=== PATIENT | male | born 1955 | race Caucasian/White ===

== ENCOUNTER 2016-10-23 03:05 | Emergency (ER) | payer OTHER ==
[~2016-10-23] VITALS: Ht 185.4 cm; Wt 70.0 kg
[~2016-10-23 03:05] MED LIST: CIPR500T4 PO; REME30TA PO; RISP3TAB23 PO
[2016-10-23 03:23] VITALS: BP 92/58; PULSE 82; RESP 18; TEMP 98.1; O2SAT 95
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
[2016-10-23 03:54] LABS: BASOPHIL # 0.1 TH/MM3 (0-0.2); BASOPHIL % 1.2 % (0.0-2.0); EOSINOPHIL # 0.1 TH/MM3 (0-0.4); EOSINOPHIL % 1.5 % (0.0-4.0); HEMATOCRIT 38.1 % (39.0-51.0); HEMO FLAGS DIFF FINAL; LYMPH % 37.5 % (9.0-44.0); LYMPHOCYTE # 2.3 TH/MM3 (1.0-4.8); MEAN CELL VOLUME 102.3 FL (80.0-100.0); MEAN CORPUSCULAR HEMOGLOBIN 35.4 PG (27.0-34.0); MEAN CORPUSCULAR HGB CONC 34.6 % (32.0-36.0); MONO % 11.5 % (0.0-8.0); NEUT % 48.3 % (16.0-70.0); PLATELET COUNT 115 TH/MM3 (150-450); RED BLOOD COUNT 3.73 MIL/MM3 (4.50-5.90); RED CELL DISTRIBUTION WIDTH 15.3 % (11.6-17.2); WHITE BLOOD COUNT 6.1 TH/MM3 (4.0-11.0)
[2016-10-23 04:05] LABS: ALT (GPT) 111 U/L (12-78); ANION GAP 10 MEQ/L (5-15); AST (GOT) 100 U/L (15-37); BICARBONATE 25.9 MEQ/L (21.0-32.0); BLOOD UREA NITROGEN 10 MG/DL (7-18); CHLORIDE 105 MEQ/L (98-107); GLOMERULAR FILTRATION RATE 93 ML/MIN (>89); POTASSIUM 3.7 MEQ/L (3.5-5.1); SODIUM (NA) 141 MEQ/L (136-145)
[2016-10-23 04:10] LABS: ALKALINE PHOSPHATASE 98 U/L (45-117); TOTAL BILIRUBIN ADULT 0.5 MG/DL (0.2-1.0)
[2016-10-23 04:11] LABS: ALCOHOL 309 MG/DL (0-5)
--- NOTE | 2016-10-23 05:08 | RADRPT ---
EXAM DATE/TIME: 10/23/2016 04:45 [facility] COMPARISON: No previous studies available for comparison. INDICATIONS : Patient complains of right shoulder pain. No known injury. MEDICAL HISTORY : None. SURGICAL HISTORY : None. ENCOUNTER: Initial ACUITY: >1 year PAIN SCORE: 7/10 LOCATION: Right Shoulder FINDINGS: Two view examination of the right shoulder demonstrates no evidence of fracture or dislocation. Gleno humeral joint is maintained with widening of the a.c. joint which may be chronic. Bony mineralization is normal. CONCLUSION: 1. Widening of the right a.c. joint which may be chronic. 2. Otherwise, no acute fracture. Palmer Keating MD on October 23, 2016 at 5:06 Board Certified Radiologist. This report was verified electronically.
[2016-10-23] MEDS ORDERED: FLUMAZENIL 0.5 MG/5 ML VIAL IV PUSH PRN (06:30)
[2016-10-23] MEDS ORDERED: LORazepam 2 MG TAB PO PRN (06:30)
[2016-10-23] MEDS ORDERED: LORazepam 2 MG/ML VIAL IV PUSH PRN ×4 (06:30)
[2016-10-23] MEDS ORDERED: LORazepam 1 MG TAB PO PRN (06:30)
--- NOTE | 2016-10-23 10:06 | PD ---
History of Present Illness Chief Complaint: Psychiatric Symptoms Time Seen by Provider: 10:00 Travel History International Travel<30 Days: No Contact w/Intl Traveler<30days: No Known affected area: No Legal Status Legal Status: Caba Act Caba Act Signed By: Citlaly Hernandez Caba Act Comment: Signed by Juancarlos Perales #[id number]. History of Present Illness: This is a 61-year-old male with a multiyear history of daily alcohol consumption , presenting under a C[place] act for reported suicidal and or homicidal ideation. Patient admits to this physician that he is drinking alcoholically and "doesn' t feel good". However, he is willing to accept assistance from [email or web address] and has been there previously for treatment. This physician explained [facility] is not licensed for alcohol treatment and [facility] is. The patient initially wants Seroquel but then states he has no money to fill the prescription. Apparently he left [facility] with that prescription and did not fill it. He is not voicing suicidal or homicidal ideation, plan or intent at this time. He is stating he will except a bus pass and go to [facility] for further evaluation and treatment. PFSH Past Medical History Bipolar Disorder: Yes Depression: Yes Diabetes: No Diminished Hearing: No Immunizations Current: Yes Tetanus Vaccination: < 5 Years Past Surgical History Surgical History: No Previous Surgery Psychiatric History Psychiatric History Hx Psychiatric Treatment: SAYS HE WAS DIAGNOSED BIPOLAR IN [place] IN 2004. SAYS HE USED TO TAKE REMERON, RIPSERDOL. SAYS IT ONLY MADE THINGS WORSE. This physician finds no significant objective clinical evidence of bipolar disorder at this time. However, the patient is obviously alcoholic. History of Inpatient Treatment: Yes Guns or firearms in home: No Social History Hx Alcohol Use: Yes (daily) Hx Tobacco Use: Yes (1/2 PPD) Hx Substance Use: No Substance Use Type: Alcohol, Crack, Marijuana, Amphetamines-Stimulants, Ecstasy , Nicotine/Cigarettes, Christopher Dust-PCP, Prescription Medications, Benzos (Valium, Xanax), Roofies, Cocaine, Synth Opiates-Pain Pills, LSD-Mescaline Other Substances Used: SAYS THE BEST IS CHRISTOPHER BARKER BUT SAYS HE HAS DONE EVERYTHING Hx of Substance Use Treatment: Yes Allergies-Medications (Allergen,Severity, Reaction): Coded Allergies: bee venom protein (honey bee) (Unverified Allergy, Severe, Anaphylaxis, ) Reported Meds & Prescriptions Reported Meds & Active Scripts Active No Active Prescriptions or Reported Medications Review of Systems Except as stated in HPI: all other systems reviewed are Neg Exam Alert: Yes [place]: Person, Place, Date, Situation Mood: Calm Affect: Appropriate Speech: Clear, Logical Eye Contact: Normal Memory Intact: Immediate, Recent, Remote Insight/Judgement Adequate MDM Medical Decision Making Medical Record Reviewed: Yes Assessment/Plan This physician spoke with the patient, reviewed his record and spoke with the nurse. Patient's Caba act is being lifted and he is being referred to [facility]. Patient's paramount problem is alcoholism. Caba act is inappropriate for that reason. Patient is not stating or threatening suicidality but would still be referred to [facility] for treatment. This physician understands the patient may act out in a dangerous way, but this is unpredictable and unavoidable. Orders Complete Blood Count With Diff (10/23/16 03:26) Comprehensive Metabolic Panel (10/23/16 03:26) Psych Screen (10/23/16 03:26) Drug Screen, Random Urine (10/23/16 03:26) Alcohol (Ethanol) (10/23/16 03:26) Shoulder, Limited(2vws) (10/23/16 ) Alcohol Withdrawal Asmt-Ciwa ONCE (10/23/16 06:18) Flumazenil Inj (Romazicon Inj) (10/23/16 06:30) Lorazepam (Ativan) (10/23/16 06:30) Lorazepam Inj (Ativan Inj) (10/23/16 06:30) Lorazepam (Ativan) (10/23/16 06:30) Lorazepam Inj (Ativan Inj) (10/23/16 06:30) Lorazepam Inj (Ativan Inj) (10/23/16 06:30) Lorazepam Inj (Ativan Inj) (10/23/16 06:30) Diet Regular Basic (10/23/16 Breakfast) Results Vital Signs Date Time Temp Pulse Resp B/P Pulse Ox O2 Delivery O2 Flow Rate FiO2 10/23/16 03:23 98.1 82 18 92/58 95 Laboratory Tests Test 10/23/16 03:30 White Blood Count 6.1 Red Blood Count 3.73 Hemoglobin 13.2 Hematocrit 38.1 Mean Corpuscular Volume 102.3 Mean Corpuscular Hemoglobin 35.4 Mean Corpuscular Hemoglobin 34.6 Concent Red Cell Distribution Width 15.3 Platelet Count 115 Mean Platelet Volume 8.2 Neutrophils (%) (Auto) 48.3 Lymphocytes (%) (Auto) 37.5 Monocytes (%) (Auto) 11.5 Eosinophils (%) (Auto) 1.5 Basophils (%) (Auto) 1.2 Neutrophils # (Auto) 3.0 Lymphocytes # (Auto) 2.3 Monocytes # (Auto) 0.7 Eosinophils # (Auto) 0.1 Basophils # (Auto) 0.1 CBC Comment DIFF FINAL Differential Comment Sodium Level 141 Potassium Level 3.7 Chloride Level 105 Carbon Dioxide Level 25.9 Anion Gap 10 Blood Urea Nitrogen 10 Creatinine 0.84 Estimat Glomerular Filtration 93 Rate Random Glucose 74 Calcium Level 8.7 Total Bilirubin 0.5 Aspartate Amino Transf 100 (AST/SGOT) Alanine Aminotransferase 111 (ALT/SGPT) Alkaline Phosphatase 98 Total Protein 7.3 Albumin 3.4 Urine Opiates Screen NEG Urine Barbiturates Screen NEG Urine Amphetamines Screen NEG Urine Benzodiazepines Screen NEG Urine Cocaine Screen NEG Urine Cannabinoids Screen NEG Ethyl Alcohol Level 309 Diagnosis Primary Impression: Adjustment disorder with mixed disturbance of emotions and conduct Additional Impression: Alcohol abuse Prescriptions No Active Prescriptions or Reported Meds Problem Qualifiers Israel Collins MD Oct 23, 2016 10:06
== END 2016-10-23 15:19 | disposition home or self-care (01) ==
LOC: NEPD 03:05
DX: Z02.89 Encounter for other administrative examinations (principal); F43.24 Adjustment disorder with disturbance of conduct; S43.101A Unspecified dislocation of right acromioclavicular joint, initial encounter; X58.XXXA Exposure to other specified factors, initial encounter; F10.10 Alcohol abuse, uncomplicated; F17.290 Nicotine dependence, other tobacco product, uncomplicated; Z59.0 Homelessness
CPT/HCPCS: 73030; 80053; 80307; 85025; 99284

== ENCOUNTER 2016-10-30 17:05 | Emergency (ER) | payer SELFPAY ==
[~2016-10-30] VITALS: Ht 172.7 cm; Wt 80.0 kg
[2016-10-30 17:31] VITALS: BP 112/67; PULSE 84; RESP 20; TEMP 98; O2SAT 94
[2016-10-30] MEDS ORDERED: SODIUM CHLOR 0.9% 1000 ML INJ 1,000 ML IV SCH (21:55)
[2016-10-30] MEDS ORDERED: THIAMINE INJ 100 MG in SODIUM CHLORIDE 0.9% INJ 100 ML IV ONE (22:00)
[2016-10-30 22:07] LABS: AUTOMATED NEUTROPHIL # 2.3 TH/MM3 (1.8-7.7); BASOPHIL # 0.1 TH/MM3 (0-0.2); BASOPHIL % 1.3 % (0.0-2.0); EOSINOPHIL % 0.9 % (0.0-4.0); HEMATOCRIT 35.8 % (39.0-51.0); LYMPH % 37.1 % (9.0-44.0); LYMPHOCYTE # 1.6 TH/MM3 (1.0-4.8); MEAN CELL VOLUME 103.2 FL (80.0-100.0); MEAN CORPUSCULAR HEMOGLOBIN 34.6 PG (27.0-34.0); MEAN CORPUSCULAR HGB CONC 33.5 % (32.0-36.0); MONO % 9.6 % (0.0-8.0); NEUT % 51.1 % (16.0-70.0); PLATELET COUNT 93 TH/MM3 (150-450); RED BLOOD COUNT 3.47 MIL/MM3 (4.50-5.90); RED CELL DISTRIBUTION WIDTH 15.9 % (11.6-17.2); WHITE BLOOD COUNT 4.4 TH/MM3 (4.0-11.0)
[2016-10-30 22:18] LABS: ANION GAP 9 MEQ/L (5-15); BICARBONATE 24.8 MEQ/L (21.0-32.0); BLOOD UREA NITROGEN 5 MG/DL (7-18); CHLORIDE 110 MEQ/L (98-107); GLOMERULAR FILTRATION RATE 125 ML/MIN (>89); POTASSIUM 3.4 MEQ/L (3.5-5.1); SODIUM (NA) 144 MEQ/L (136-145)
[2016-10-30 22:19] LABS: ALT (GPT) 86 U/L (12-78)
[2016-10-30 22:21] LABS: ALKALINE PHOSPHATASE 80 U/L (45-117); TOTAL BILIRUBIN ADULT 0.3 MG/DL (0.2-1.0)
[2016-10-30 22:27] LABS: ACETAMINOPHEN LESS THAN 2.0 MCG/ML (10.0-30.0); ALCOHOL 292 MG/DL (0-5); AST (GOT) 79 U/L (15-37)
[2016-10-30 22:28] LABS: BLOOD, URINE MOD (NEG); COMMENT (UR) CULT NOT INDICATED; CULTURE IF INDICATED CULT NOT INDICATED; GLUCOSE,URINE NEG (NEG); KETONE, URINE NEG (NEG); NITRITE,URINE NEG (NEG); URINE COLOR LIGHT-YELLOW (YELLW/STRAW)
--- NOTE | 2016-10-30 22:28 | PD ---
HPI Chief Complaint: Alcohol/Drug Intoxication Time Seen by Provider: 21:37 Travel History International Travel<30 days: No Contact w/Intl Traveler<30days: No Traveled to known affect area: No History of Present Illness HPI 61-year-old male that presents to the ED for evaluation of alcohol abuse. Patient was found by police to be intoxicated. Apparently per [place] act patient was found to be not able to wake up on his own by some "friends" and they called the ambulance. Per ambulance report he was actually awake and arousable but intoxicated. He states that he's been drinking a lot of alcohol today. He denies any medical issues other than having some dizziness and unsteady on his gait. Per patient his been going on for "sometime ". He does smell heavily of alcohol. He denies again any medications of any kind. He states that he might have fallen recently will he doesn't remember or can't really tell me when he felt. Per patient he did hit his head but did not lose consciousness. Takes no blood thinners. He drinks heavily every day which is normal for him. He denies any drug abuse. No suicidal or homicidal ideation. History is somewhat limited because of patient's intoxication. PFSH Past Medical History Bipolar Disorder: Yes Depression: Yes Diabetes: No Diminished Hearing: No Immunizations Current: Yes Social History Alcohol Use: Yes (daily) Tobacco Use: Yes (1/2 PPD) Substance Use: No Allergies-Medications (Allergen,Severity, Reaction): Coded Allergies: bee venom protein (honey bee) (Unverified Allergy, Severe, Anaphylaxis, ) Reported Meds & Prescriptions Reported Meds & Active Scripts Active Active Prescriptions or Reported Medications Unobtainable Review of Systems ROS Limitations: Intoxication Except as stated in HPI: all other systems reviewed are Neg Physical Exam Exam Limitations: Intoxication Narrative GENERAL: SKIN: Warm and dry. HEAD: Atraumatic. Normocephalic. EYES: Pupils equal and round. No scleral icterus. No injection or drainage. ENT: No nasal bleeding or discharge. Mucous membranes pink and moist. Tongue is midline. No uvula deviation. NECK: Trachea midline. No JVD. CARDIOVASCULAR: Regular rate and rhythm. No murmurs, S3, S4. RESPIRATORY: No accessory muscle use. Clear to auscultation. Breath sounds equal bilaterally. GASTROINTESTINAL: Abdomen soft, non-tender, nondistended. Hepatic and splenic margins not palpable. MUSCULOSKELETAL: Extremities without clubbing, cyanosis, or edema. No obvious deformities. Full range of motion of the upper and lower extremities bilaterally. 2+ pulses bilaterally. NEUROLOGICAL: Awake and alert. No obvious cranial nerve deficits. Motor grossly within normal limits. Five out of 5 muscle strength in the arms and legs. Normal speech. PSYCHIATRIC: Appropriate mood and affect; insight and judgment normal. Data Data Last Documented VS Vital Signs Date Time Temp Pulse Resp B/P (MAP) Pulse Ox O2 Delivery O2 Flow Rate FiO2 10/30/16 17:31 98.0 84 20 112/67 (82) 94 Orders Orders Complete Blood Count With Diff (10/30/16 21:36) Comprehensive Metabolic Panel (10/30/16 21:36) Urinalysis - C+S If Indicated (10/30/16 21:36) Drug Screen, Random Urine (10/30/16 21:36) Alcohol (Ethanol) (10/30/16 21:36) Salicylates (Aspirin) (10/30/16 21:36) Tylenol (Acetaminophen) (10/30/16 21:36) Ct Brain W/O Iv Contrast(Rout) (10/30/16 21:55) Iv Access Insert/Monitor (10/30/16 21:55) Ecg Monitoring (10/30/16 21:55) Oximetry (10/30/16 21:55) Sodium Chlor 0.9% 1000 Ml Inj (Ns 1000 M (10/30/16 21:55) Thiamine Inj (Thiamine Inj) (10/30/16 22:00) Labs Laboratory Tests Test 10/30/16 21:50 10/30/16 21:55 White Blood Count 4.4 TH/MM3 Red Blood Count 3.47 MIL/MM3 Hemoglobin 12.0 GM/DL Hematocrit 35.8 % Mean Corpuscular Volume 103.2 FL Mean Corpuscular Hemoglobin 34.6 PG Mean Corpuscular Hemoglobin Concent 33.5 % Red Cell Distribution Width 15.9 % Platelet Count 93 TH/MM3 Mean Platelet Volume 8.1 FL Neutrophils (%) (Auto) 51.1 % Lymphocytes (%) (Auto) 37.1 % Monocytes (%) (Auto) 9.6 % Eosinophils (%) (Auto) 0.9 % Basophils (%) (Auto) 1.3 % Neutrophils # (Auto) 2.3 TH/MM3 Lymphocytes # (Auto) 1.6 TH/MM3 Monocytes # (Auto) 0.4 TH/MM3 Eosinophils # (Auto) 0.0 TH/MM3 Basophils # (Auto) 0.1 TH/MM3 CBC Comment AUTO DIFF Differential Comment AUTO DIFF CONFIRMED Platelet Estimate LOW Platelet Morphology Comment NORMAL Ovalocytes 1+ Albumin 3.1 GM/DL Aspartate Amino Transf (AST/SGOT) 79 U/L Anion Gap 9 MEQ/L Estimat Glomerular Filtration Rate 125 ML/MIN Salicylates Level 1.8 MG/DL Acetaminophen Level LESS THAN 2.0 MCG/ML Ethyl Alcohol Level 292 MG/DL Urine Color LIGHT-YELLOW Urine Turbidity CLEAR Urine pH 5.0 Urine Specific [place] 1.006 Urine Protein NEG mg/dL Urine Glucose (UA) NEG mg/dL Urine Ketones NEG mg/dL Urine Occult Blood MOD Urine Nitrite NEG Urine Bilirubin NEG Urine Urobilinogen LESS THAN 2.0 MG/DL Urine Leukocyte Esterase NEG Urine RBC 11 /hpf Microscopic Urinalysis Comment CULT NOT INDICATED Urine Opiates Screen NEG Urine Barbiturates Screen NEG Urine Amphetamines Screen NEG Urine Benzodiazepines Screen NEG Urine Cocaine Screen NEG Urine Cannabinoids Screen NEG MDM Medical Decision Making Medical Screen Exam Complete: Yes Emergency Medical Condition: Yes Medical Record Reviewed: Yes Differential Diagnosis Depression versus suicidal ideation versus anxiety versus adjustment disorder versus mood disorder versus bipolar disorder versus schizophrenia versus paranoid disorder versus psychosis versus substance abuse versus alcohol abuse versus alcohol induced psychosis versus homicidality addition versus cutting versus personality disorder Narrative Course 61-year-old male that presents to the ED for evaluation of alcohol abuse. Patient was properly examined and was found to have signs and symptoms consistent appears to be alcohol intoxication. He does tell me that he's been feeling unsteady on his. He possibly had his head recently. He is not really able to give me more history and his intoxicated. Because of this I will do labwork and imaging to make sure patient doesn't have anything acute. Patient will have fluids and timing given. I suspect that his unsteadiness is likely related to his alcohol abuse. Case signed out to Darryl Lyn PA-C pending labs and disposition. Scripts Unable to Obtain Active Prescriptions or Reported Meds Rich Todd Oct 30, 2016 22:28
[2016-10-30 22:37] LABS: HEMO FLAGS AUTO DIFF
--- NOTE | 2016-10-30 22:55 | RADRPT ---
EXAM DATE/TIME: 10/30/2016 22:26 [facility] COMPARISON: No previous studies available for comparison. INDICATIONS : Syncope. RADIATION DOSE: 35.47 CTDIvol (mGy) ; Patient motion MEDICAL HISTORY : Non-responsive. SURGICAL HISTORY : Non-responsive. ENCOUNTER: Initial ACUITY: 1 day PAIN SCALE: Non-responsive LOCATION: cranial TECHNIQUE: Multiple contiguous axial images were obtained of the head. Using automated exposure control and adj ustment of the mA and/or kV according to patient size, radiation dose was kept as low as reasonably a chievable to obtain optimal diagnostic quality images. DICOM format image data is available electro nically for review and comparison. FINDINGS: CEREBRUM: The ventricles are normal for age. No evidence of midline shift, mass lesion, hemorrhage or acute in farction. No extra-axial fluid collections are seen. POSTERIOR FOSSA: The cerebellum and brainstem are intact. The 4th ventricle is midline. The cerebellopontine angle i s unremarkable. EXTRACRANIAL: The visualized portion of the orbits is intact. SKULL: The calvaria is intact. No evidence of skull fracture. CONCLUSION: Negative noncontrast head CT. Gerry Clark MD on October 30, 2016 at 22:54 Board Certified Radiologist. This report was verified electronically.
[2016-10-30 23:04] LABS: OVALOCYTES 1+ (NORMAL); PLATELET ESTIMATE SMEAR LOW (NORMAL); PLATELET MORPHOLOGY NORMAL (NORMAL); SCAN/DIFF AUTO DIFF CONFIRMED
--- NOTE | 2016-10-30 23:16 | PD ---
Data Data Last Documented VS Vital Signs Date Time Temp Pulse Resp B/P (MAP) Pulse Ox O2 Delivery O2 Flow Rate FiO2 10/30/16 17:31 98.0 84 20 112/67 (82) 94 Orders Orders Complete Blood Count With Diff (10/30/16 21:36) Comprehensive Metabolic Panel (10/30/16 21:36) Urinalysis - C+S If Indicated (10/30/16 21:36) Drug Screen, Random Urine (10/30/16 21:36) Alcohol (Ethanol) (10/30/16 21:36) Salicylates (Aspirin) (10/30/16 21:36) Tylenol (Acetaminophen) (10/30/16 21:36) Ct Brain W/O Iv Contrast(Rout) (10/30/16 21:55) Iv Access Insert/Monitor (10/30/16 21:55) Ecg Monitoring (10/30/16 21:55) Oximetry (10/30/16 21:55) Sodium Chlor 0.9% 1000 Ml Inj (Ns 1000 M (10/30/16 21:55) Thiamine Inj (Thiamine Inj) (10/30/16 22:00) Labs Laboratory Tests Test 10/30/16 21:50 10/30/16 21:55 White Blood Count 4.4 TH/MM3 Red Blood Count 3.47 MIL/MM3 Hemoglobin 12.0 GM/DL Hematocrit 35.8 % Mean Corpuscular Volume 103.2 FL Mean Corpuscular Hemoglobin 34.6 PG Mean Corpuscular Hemoglobin Concent 33.5 % Red Cell Distribution Width 15.9 % Platelet Count 93 TH/MM3 Mean Platelet Volume 8.1 FL Neutrophils (%) (Auto) 51.1 % Lymphocytes (%) (Auto) 37.1 % Monocytes (%) (Auto) 9.6 % Eosinophils (%) (Auto) 0.9 % Basophils (%) (Auto) 1.3 % Neutrophils # (Auto) 2.3 TH/MM3 Lymphocytes # (Auto) 1.6 TH/MM3 Monocytes # (Auto) 0.4 TH/MM3 Eosinophils # (Auto) 0.0 TH/MM3 Basophils # (Auto) 0.1 TH/MM3 CBC Comment AUTO DIFF Differential Comment AUTO DIFF CONFIRMED Platelet Estimate LOW Platelet Morphology Comment NORMAL Ovalocytes 1+ Albumin 3.1 GM/DL Aspartate Amino Transf (AST/SGOT) 79 U/L Anion Gap 9 MEQ/L Estimat Glomerular Filtration Rate 125 ML/MIN Salicylates Level 1.8 MG/DL Acetaminophen Level LESS THAN 2.0 MCG/ML Ethyl Alcohol Level 292 MG/DL Urine Color LIGHT-YELLOW Urine Turbidity CLEAR Urine pH 5.0 Urine Specific [place] 1.006 Urine Protein NEG mg/dL Urine Glucose (UA) NEG mg/dL Urine Ketones NEG mg/dL Urine Occult Blood MOD Urine Nitrite NEG Urine Bilirubin NEG Urine Urobilinogen LESS THAN 2.0 MG/DL Urine Leukocyte Esterase NEG Urine RBC 11 /hpf Microscopic Urinalysis Comment CULT NOT INDICATED Urine Opiates Screen NEG Urine Barbiturates Screen NEG Urine Amphetamines Screen NEG Urine Benzodiazepines Screen NEG Urine Cocaine Screen NEG Urine Cannabinoids Screen NEG MDM Medical Record Reviewed: Yes Supervised Visit with KENZIE: Yes Interpretation(s) CTs are negative for acute trauma Laboratory Tests Test 10/30/16 21:50 10/30/16 21:55 White Blood Count 4.4 TH/MM3 Red Blood Count 3.47 MIL/MM3 Hemoglobin 12.0 GM/DL Hematocrit 35.8 % Mean Corpuscular Volume 103.2 FL Mean Corpuscular Hemoglobin 34.6 PG Mean Corpuscular Hemoglobin Concent 33.5 % Red Cell Distribution Width 15.9 % Platelet Count 93 TH/MM3 Mean Platelet Volume 8.1 FL Neutrophils (%) (Auto) 51.1 % Lymphocytes (%) (Auto) 37.1 % Monocytes (%) (Auto) 9.6 % Eosinophils (%) (Auto) 0.9 % Basophils (%) (Auto) 1.3 % Neutrophils # (Auto) 2.3 TH/MM3 Lymphocytes # (Auto) 1.6 TH/MM3 Monocytes # (Auto) 0.4 TH/MM3 Eosinophils # (Auto) 0.0 TH/MM3 Basophils # (Auto) 0.1 TH/MM3 CBC Comment AUTO DIFF Differential Comment AUTO DIFF CONFIRMED Platelet Estimate LOW Platelet Morphology Comment NORMAL Ovalocytes 1+ Albumin 3.1 GM/DL Aspartate Amino Transf (AST/SGOT) 79 U/L Anion Gap 9 MEQ/L Estimat Glomerular Filtration Rate 125 ML/MIN Salicylates Level 1.8 MG/DL Acetaminophen Level LESS THAN 2.0 MCG/ML Ethyl Alcohol Level 292 MG/DL Urine Color LIGHT-YELLOW Urine Turbidity CLEAR Urine pH 5.0 Urine Specific [place] 1.006 Urine Protein NEG mg/dL Urine Glucose (UA) NEG mg/dL Urine Ketones NEG mg/dL Urine Occult Blood MOD Urine Nitrite NEG Urine Bilirubin NEG Urine Urobilinogen LESS THAN 2.0 MG/DL Urine Leukocyte Esterase NEG Urine RBC 11 /hpf Microscopic Urinalysis Comment CULT NOT INDICATED Urine Opiates Screen NEG Urine Barbiturates Screen NEG Urine Amphetamines Screen NEG Urine Benzodiazepines Screen NEG Urine Cocaine Screen NEG Urine Cannabinoids Screen NEG CBC & BMP Diagram 10/30/16 21:50 Albumin 3.1 L, Aspartate Amino Transf (AST/SGOT) 79 H Differential Diagnosis . Narrative Course This is a 61-year-old male who has a history of alcohol abuse and was seen earlier this evening and I was asked to review the patient's laboratory tests and medically clear him when his alcohol is below 80. The patient will be allowed to sleep it off until 1 AM. At that point his alcohol level should be below 80 and he will be considered stable for discharge. The patient is reexamined at 01 100 and appears clinically sober. He ambulates freely. He has a steady gait. The patient's consider stable for discharge. Diagnosis Primary Impression: Head injury, acute Qualified Codes: S09.90XA - Unspecified injury of head, initial encounter Additional Impression: Alcohol intoxication Qualified Codes: F10.920 - Alcohol use, unspecified with intoxication, uncomplicated Patient Instructions: General Instructions Additional Instruction: Rest. Increase fluids. Head precautions. Avoid alcohol. Avoid illegal substances. Follow-up with [facility] for detox. Do not operate a car or any heavy machinery under the influence of alcohol or drugs. Follow-up with a medical doctor this week. Return to the ER for emergencies Med/Other Pt SpecificInfo: No Meds Exist/No RX given Scripts No Active Prescriptions or Reported Meds Disposition: DISCHARGE HOME Condition: Stable Darryl Lyn Oct 30, 2016 23:16
== END 2016-10-31 02:58 | disposition home or self-care (01) ==
LOC: NEDAMB 17:05 → NEPE 10-31 02:58
DX: S09.90XA Unspecified injury of head, initial encounter (principal); W19.XXXA Unspecified fall, initial encounter; F10.920 Alcohol use, unspecified with intoxication, uncomplicated; Y90.8 Blood alcohol level of 240 mg/100 ml or more; F17.290 Nicotine dependence, other tobacco product, uncomplicated
CPT/HCPCS: 70450; 80053; 80307; 81001; 85025; 96365; 99285; J3411; J7030

== ENCOUNTER 2017-01-23 14:36 | Emergency (ER) | payer OTHER ==
[~2017-01-23] VITALS: Ht 177.8 cm; Wt 75.0 kg
[2017-01-23 15:35] LABS: AUTOMATED NEUTROPHIL # 2.6 TH/MM3 (1.8-7.7); BASOPHIL % 0.7 % (0.0-2.0); EOSINOPHIL # 0.1 TH/MM3 (0-0.4); EOSINOPHIL % 2.3 % (0.0-4.0); HEMATOCRIT 37.2 % (39.0-51.0); HEMO FLAGS DIFF FINAL; LYMPH % 38.5 % (9.0-44.0); MEAN CELL VOLUME 99.5 FL (80.0-100.0); MEAN CORPUSCULAR HEMOGLOBIN 34.1 PG (27.0-34.0); MEAN CORPUSCULAR HGB CONC 34.3 % (32.0-36.0); NEUT % 49.5 % (16.0-70.0); PLATELET COUNT 154 TH/MM3 (150-450); RED BLOOD COUNT 3.74 MIL/MM3 (4.50-5.90); WHITE BLOOD COUNT 5.3 TH/MM3 (4.0-11.0)
[2017-01-23 15:55] LABS: ALT (GPT) 31 U/L (12-78); ANION GAP 6 MEQ/L (5-15); AST (GOT) 25 U/L (15-37); BICARBONATE 23.8 MEQ/L (21.0-32.0); BLOOD UREA NITROGEN 9 MG/DL (7-18); CHLORIDE 110 MEQ/L (98-107); GLOMERULAR FILTRATION RATE 109 ML/MIN (>89); POTASSIUM 4.1 MEQ/L (3.5-5.1); SODIUM (NA) 140 MEQ/L (136-145)
[2017-01-23 16:00] LABS: ALKALINE PHOSPHATASE 57 U/L (45-117); TOTAL BILIRUBIN ADULT 0.2 MG/DL (0.2-1.0)
[2017-01-23 16:01] LABS: ALCOHOL 353 MG/DL (0-5)
--- NOTE | 2017-01-23 16:08 | PD ---
HPI . Caba act Chief Complaint: Psychiatric Symptoms Time Seen by Provider: 14:45 Travel History International Travel<30 days: No Contact w/Intl Traveler<30days: No Traveled to known affect area: No History of Present Illness HPI 61-year-old male presents emergency department under Caba act from [facility] department. The Caba act read that the patient was intoxicated and attempting to cross the street when the officer stopped him and told him that he can get hurt while crossing the street and patient stated he would rather than be here. Patient subsequently brought to our facility. Patient angry and stating he wants to hurt himself and hurt the staff here. Patient unable to tell me about any major medical history or if he takes any daily medication. PFSH Past Medical History Bipolar Disorder: Yes Depression: Yes Diabetes: No Diminished Hearing: No Immunizations Current: Yes Past Surgical History Surgical History: No Previous Surgery Social History Alcohol Use: Yes (daily) Tobacco Use: Yes (1/2 PPD) Substance Use: No Allergies-Medications (Allergen,Severity, Reaction): Coded Allergies: bee venom protein (honey bee) (Unverified Allergy, Severe, Anaphylaxis, ) Reported Meds & Prescriptions Reported Meds & Active Scripts Active Active Prescriptions or Reported Medications Unobtainable Review of Systems Except as stated in HPI: all other systems reviewed are Neg Physical Exam Narrative GENERAL: Well-nourished, well-developed 61-year-old male patient that is angry and irritated appears to be intoxicated. Nontoxic appearing. SKIN: Focused skin assessment warm/dry. HEAD: Normocephalic. Atraumatic. EYES: No scleral icterus. No injection or drainage. NECK: Supple, trachea midline. No JVD or lymphadenopathy. CARDIOVASCULAR: Regular rate and rhythm without murmurs, gallops, or rubs. RESPIRATORY: Breath sounds equal bilaterally. No accessory muscle use. GASTROINTESTINAL: Abdomen soft, non-tender, nondistended. MUSCULOSKELETAL: No cyanosis, or edema. BACK: Nontender without obvious deformity. No CVA tenderness. Data Data Orders Orders Psych Screen (01/23/17 14:45) Complete Blood Count With Diff (01/23/17 15:02) Comprehensive Metabolic Panel (01/23/17 15:02) Drug Screen, Random Urine (01/23/17 15:02) Alcohol (Ethanol) (01/23/17 15:02) Labs Laboratory Tests Test 01/23/17 15:20 01/23/17 15:25 White Blood Count 5.3 TH/MM3 Red Blood Count 3.74 MIL/MM3 Hemoglobin 12.8 GM/DL Hematocrit 37.2 % Mean Corpuscular Volume 99.5 FL Mean Corpuscular Hemoglobin 34.1 PG Mean Corpuscular Hemoglobin Concent 34.3 % Red Cell Distribution Width 13.0 % Platelet Count 154 TH/MM3 Mean Platelet Volume 7.6 FL Neutrophils (%) (Auto) 49.5 % Lymphocytes (%) (Auto) 38.5 % Monocytes (%) (Auto) 9.0 % Eosinophils (%) (Auto) 2.3 % Basophils (%) (Auto) 0.7 % Neutrophils # (Auto) 2.6 TH/MM3 Lymphocytes # (Auto) 2.0 TH/MM3 Monocytes # (Auto) 0.5 TH/MM3 Eosinophils # (Auto) 0.1 TH/MM3 Basophils # (Auto) 0.0 TH/MM3 CBC Comment DIFF FINAL Differential Comment Blood Urea Nitrogen 9 MG/DL Creatinine 0.73 MG/DL Random Glucose 93 MG/DL Total Protein 7.1 GM/DL Albumin 3.4 GM/DL Calcium Level 8.2 MG/DL Alkaline Phosphatase 57 U/L Aspartate Amino Transf (AST/SGOT) 25 U/L Alanine Aminotransferase (ALT/SGPT) 31 U/L Total Bilirubin 0.2 MG/DL Sodium Level 140 MEQ/L Potassium Level 4.1 MEQ/L Chloride Level 110 MEQ/L Carbon Dioxide Level 23.8 MEQ/L Anion Gap 6 MEQ/L Estimat Glomerular Filtration Rate 109 ML/MIN Ethyl Alcohol Level 353 MG/DL Urine Opiates Screen NEG Urine Barbiturates Screen NEG Urine Amphetamines Screen NEG Urine Benzodiazepines Screen NEG Urine Cocaine Screen NEG Urine Cannabinoids Screen NEG MDM Medical Decision Making Medical Screen Exam Complete: Yes Emergency Medical Condition: Yes Differential Diagnosis Differential diagnoses include but not limited to adjustment disorder, alcohol abuse, depression, Caba act Narrative Course 61-year-old male patient presents emergency department as a Caba act. Patient is clearly intoxicated and threatening harm to himself and staff. CBC, CMP, drug screen and alcohol level ordered and pending. Drug screen negative. Alcohol level 353. Otherwise labs showed no acute abnormality. Patient is medically cleared for psychiatric screen. Psych to dispo patient. Laboratory Tests Test 01/23/17 15:20 01/23/17 15:25 White Blood Count 5.3 TH/MM3 Red Blood Count 3.74 MIL/MM3 Hemoglobin 12.8 GM/DL Hematocrit 37.2 % Mean Corpuscular Volume 99.5 FL Mean Corpuscular Hemoglobin 34.1 PG Mean Corpuscular Hemoglobin Concent 34.3 % Red Cell Distribution Width 13.0 % Platelet Count 154 TH/MM3 Mean Platelet Volume 7.6 FL Neutrophils (%) (Auto) 49.5 % Lymphocytes (%) (Auto) 38.5 % Monocytes (%) (Auto) 9.0 % Eosinophils (%) (Auto) 2.3 % Basophils (%) (Auto) 0.7 % Neutrophils # (Auto) 2.6 TH/MM3 Lymphocytes # (Auto) 2.0 TH/MM3 Monocytes # (Auto) 0.5 TH/MM3 Eosinophils # (Auto) 0.1 TH/MM3 Basophils # (Auto) 0.0 TH/MM3 CBC Comment DIFF FINAL Differential Comment Blood Urea Nitrogen 9 MG/DL Creatinine 0.73 MG/DL Random Glucose 93 MG/DL Total Protein 7.1 GM/DL Albumin 3.4 GM/DL Calcium Level 8.2 MG/DL Alkaline Phosphatase 57 U/L Aspartate Amino Transf (AST/SGOT) 25 U/L Alanine Aminotransferase (ALT/SGPT) 31 U/L Total Bilirubin 0.2 MG/DL Sodium Level 140 MEQ/L Potassium Level 4.1 MEQ/L Chloride Level 110 MEQ/L Carbon Dioxide Level 23.8 MEQ/L Anion Gap 6 MEQ/L Estimat Glomerular Filtration Rate 109 ML/MIN Ethyl Alcohol Level 353 MG/DL Urine Opiates Screen NEG Urine Barbiturates Screen NEG Urine Amphetamines Screen NEG Urine Benzodiazepines Screen NEG Urine Cocaine Screen NEG Urine Cannabinoids Screen NEG Diagnosis Primary Impression: Medical clearance for psychiatric admission Scripts Unable to Obtain Active Prescriptions or Reported Meds Olinda Fong Jan 23, 2017 16:08
[2017-01-23 22:43] VITALS: BP 114/59; PULSE 79; RESP 19; O2SAT 96
[2017-01-24 05:00] VITALS: BP 155/79; PULSE 66; RESP 18; TEMP 95.8; TEMP 98.8; O2SAT 97
[2017-01-24 12:08] VITALS: BP 137/86; PULSE 67; RESP 18
--- NOTE | 2017-01-24 12:22 | PD.PSY.CON ---
Provisional Diagnosis Admission Date [place] I. Alcohol abuse with intoxication F 10.129, alcohol induced mood disorder left 10.94 History of Present Illness Service Psychiatry Consult Requested By EDMD Reason for Consult Caba act Primary Care Physician No Primary Care Physician HPI Patient is a 61-year-old white male well-known post multiple prior contacts prior merely related to his severe alcohol misuse. Comes here this time under Caba act by the [employer] [facility] [employer] dated dated 01/23/17 at 024 1 PM the document reviewed and essentially stating. Upon contacting Nikolay Cardona I advised him of the dangers of stepping into traffic while intoxicated was stated "I don't care if I " I asked him what he meant and Suly applied "I would rather be than stuck here" based on my training and experience Brendan was not so intoxicated that he couldn't care for himself but he was in need of an evaluation based on his statement as well as his ability to continue putting herself and others at risk with a possible intention of causing harm. Patient seen screened in the ED blood alcohol level of 253. At the present time patient sitting quietly in his room on J pod nurse Christopher present throughout session. Patient is alert oriented calm and cooperative denies suicidality homicidality voices or visions. Affected does not remember much about what happened last night. He is essentially homeless. He does acknowledge drinking 3-4 times per week which are probably equal abrade to daily drinking he acknowledges solo drinking, a.m. drinking, acknowledges blacking out or passing out. States he was in a detox while in nursing home for public intoxication a few weeks ago. At this time patient does not meet criteria for an involuntary psychiatric hospitalization. Is essentially detox. Thus I will lift the Caba act. It is okay by psych for discharge when medically clear and stable. No Rx by me. The first her voluntary outpatient substance abuse assessment, referred to AA Review of Systems Constitutional: DENIES: Diaphoretic episodes, Fatigue, Fever, Weight gain, Weight loss, Chills, Dizziness, Change in appetite, Night Sweats Endocrine: DENIES: Heat/cold intolerance, Polydipsia, Polyuria, Polyphagia Eyes: DENIES: Blurred vision, Diplopia, Eye inflammation, Eye pain, Vision loss , Photosensitivity, Double Vision Ears, nose, mouth, throat: DENIES: Tinnitus, Hearing loss, Vertigo, Nasal discharge, Oral lesions, Throat pain, Hoarseness, Ear Pain, Running Nose, Epistaxis, Sinus Pain, Toothache, Odynophagia Respiratory: DENIES: Apneas, Cough, Snoring, Wheezing, Hemoptysis, Sputum production, Shortness of breath Cardiovascular: DENIES: Chest pain, Palpitations, Syncope, Dyspnea on Exertion , PND, Lower Extremity Edema, Orthopnea, Claudication Gastrointestinal: DENIES: Abdominal pain, Black stools, Bloody stools, Constipation, Diarrhea, Nausea, Vomiting, Difficulty Swallowing, Anorexia Genitourinary: DENIES: Sexual dysfunction, Urinary frequency, Urinary incontinence, Urgency, Hematuria, Dysuria, Nocturia, Penile Discharge, Testicular Pain, Testicular Swelling Musculoskeletal: DENIES: Joint pain, Muscle aches, Stiffness, Joint Swelling, Back pain, Neck pain Hematologic/lymphatic: DENIES: Bruising, Lymphadenopathy Immunologic/allergic: DENIES: Eczema, Urticaria Neurologic: DENIES: Abnormal gait, Headache, Localized weakness, Paresthesias, Seizures, Speech Problems, Tremor, Poor Balance Psychiatric: DENIES: Anxiety, Confusion, Mood changes, Depression, Hallucinations, Agitation, Suicidal Ideation, Homicidal Ideation, Delusions Past Family Social History Coded Allergies: bee venom protein (honey bee) (Unverified Allergy, Severe, Anaphylaxis, ) Past Medical History Patient medically cleared ED Unable to Obtain Active Prescriptions or Reported Meds Family Psych History Patient denies Social History Patient homeless chronic alcoholic Patient's Strengths (min. 2) Patient verbal irritable axis health care Physical Exam Patient medically cleared ED at this time patient sitting quietly in J pod is in no acute distress, no rash or distress, no complaints of abdominal pain. Patient moves all 4 extremities without difficulty no abnormal motor movements noted Vital Signs Vital Signs Date Time Temp Pulse Resp B/P (MAP) Pulse Ox O2 Delivery O2 Flow Rate FiO2 01/24/17 05:00 98.8 66 18 155/79 (104) 97 Room Air Lab Results Test 01/23/17 15:20 01/23/17 15:25 White Blood Count 5.3 TH/MM3 Red Blood Count 3.74 MIL/MM3 Hemoglobin 12.8 GM/DL Hematocrit 37.2 % Mean Corpuscular Volume 99.5 FL Mean Corpuscular Hemoglobin 34.1 PG Mean Corpuscular Hemoglobin Concent 34.3 % Red Cell Distribution Width 13.0 % Platelet Count 154 TH/MM3 Mean Platelet Volume 7.6 FL Neutrophils (%) (Auto) 49.5 % Lymphocytes (%) (Auto) 38.5 % Monocytes (%) (Auto) 9.0 % Eosinophils (%) (Auto) 2.3 % Basophils (%) (Auto) 0.7 % Neutrophils # (Auto) 2.6 TH/MM3 Lymphocytes # (Auto) 2.0 TH/MM3 Monocytes # (Auto) 0.5 TH/MM3 Eosinophils # (Auto) 0.1 TH/MM3 Basophils # (Auto) 0.0 TH/MM3 CBC Comment DIFF FINAL Differential Comment Blood Urea Nitrogen 9 MG/DL Creatinine 0.73 MG/DL Random Glucose 93 MG/DL Total Protein 7.1 GM/DL Albumin 3.4 GM/DL Calcium Level 8.2 MG/DL Alkaline Phosphatase 57 U/L Aspartate Amino Transf (AST/SGOT) 25 U/L Alanine Aminotransferase (ALT/SGPT) 31 U/L Total Bilirubin 0.2 MG/DL Sodium Level 140 MEQ/L Potassium Level 4.1 MEQ/L Chloride Level 110 MEQ/L Carbon Dioxide Level 23.8 MEQ/L Anion Gap 6 MEQ/L Estimat Glomerular Filtration Rate 109 ML/MIN Ethyl Alcohol Level 353 MG/DL Urine Opiates Screen NEG Urine Barbiturates Screen NEG Urine Amphetamines Screen NEG Urine Benzodiazepines Screen NEG Urine Cocaine Screen NEG Urine Cannabinoids Screen NEG Mental Status Examination Appearance: Disheveled Consciousness: Alert Orientation: x4 Motor Activity: Normal gait Speech: Unremarkable Language: Adequate Fund of Knowledge: Adequate Attention and Concentration: Other (fair) Memory: Unremarkable (fair) Mood: Other (euthymic to slightly restricted) Affect: Other (good range and intensity) Thought Process & Associations: Linear Thought Content: Appropriate Hallucination Type: None Delusion Type: None Suicidal Ideation: No (denies) Suicidal Plan: No (denies) Suicidal Intention: No (denies) Insight: Poor Judgment: Poor Assessment & Plan Problem List: (1) Alcohol abuse with intoxication ICD Codes: F10.129 - Alcohol abuse with intoxication, unspecified (2) Alcohol-induced mood disorder ICD Codes: F10.94 - Alcohol use, unspecified with alcohol-induced mood disorder Assessment & Plan Estimated LOS: days this time patient does not meet Caba criteria will lift Caba act. Is okay by psych for discharge or patient medically clear and stable. No Rx by me. Referral Mr. Grady act voluntary outpatient substance abuse assessment. Referred to AA Discharge Planning See above Request HC Surrog/Guard Advoc?: No Gerry Andres MD Jan 24, 2017 12:22
--- NOTE | 2017-01-24 12:41 | PD ---
Physical Exam Time Seen by Provider: 12:35 Data Data Last Documented VS Vital Signs Date Time Temp Pulse Resp B/P (MAP) Pulse Ox O2 Delivery O2 Flow Rate FiO2 01/24/17 12:08 67 18 137/86 (103) Room Air 01/24/17 05:00 98.8 97 Orders Orders Psych Screen (01/23/17 14:45) Complete Blood Count With Diff (01/23/17 15:02) Comprehensive Metabolic Panel (01/23/17 15:02) Drug Screen, Random Urine (01/23/17 15:02) Alcohol (Ethanol) (01/23/17 15:02) Diet Regular Basic (01/24/17 Breakfast) Diet Regular Basic (01/24/17 Lunch) Ed Discharge Order (01/24/17 12:40) Labs Laboratory Tests Test 01/23/17 15:20 01/23/17 15:25 White Blood Count 5.3 TH/MM3 Red Blood Count 3.74 MIL/MM3 Hemoglobin 12.8 GM/DL Hematocrit 37.2 % Mean Corpuscular Volume 99.5 FL Mean Corpuscular Hemoglobin 34.1 PG Mean Corpuscular Hemoglobin Concent 34.3 % Red Cell Distribution Width 13.0 % Platelet Count 154 TH/MM3 Mean Platelet Volume 7.6 FL Neutrophils (%) (Auto) 49.5 % Lymphocytes (%) (Auto) 38.5 % Monocytes (%) (Auto) 9.0 % Eosinophils (%) (Auto) 2.3 % Basophils (%) (Auto) 0.7 % Neutrophils # (Auto) 2.6 TH/MM3 Lymphocytes # (Auto) 2.0 TH/MM3 Monocytes # (Auto) 0.5 TH/MM3 Eosinophils # (Auto) 0.1 TH/MM3 Basophils # (Auto) 0.0 TH/MM3 CBC Comment DIFF FINAL Differential Comment Blood Urea Nitrogen 9 MG/DL Creatinine 0.73 MG/DL Random Glucose 93 MG/DL Total Protein 7.1 GM/DL Albumin 3.4 GM/DL Calcium Level 8.2 MG/DL Alkaline Phosphatase 57 U/L Aspartate Amino Transf (AST/SGOT) 25 U/L Alanine Aminotransferase (ALT/SGPT) 31 U/L Total Bilirubin 0.2 MG/DL Sodium Level 140 MEQ/L Potassium Level 4.1 MEQ/L Chloride Level 110 MEQ/L Carbon Dioxide Level 23.8 MEQ/L Anion Gap 6 MEQ/L Estimat Glomerular Filtration Rate 109 ML/MIN Ethyl Alcohol Level 353 MG/DL Urine Opiates Screen NEG Urine Barbiturates Screen NEG Urine Amphetamines Screen NEG Urine Benzodiazepines Screen NEG Urine Cocaine Screen NEG Urine Cannabinoids Screen NEG MDM Medical Record Reviewed: Yes Supervised Visit with KENZIE: No Narrative Course Please see previous provider's notes. This patient came and under a Caba act, intoxicated. The caba act has been lifted by psychiatry and he has been cleared by psychiatry. He is currently feeling improved, sober, eating meal on his bed. He feels safe being discharged and is denying any suicidal notions. He has no medical issue that would require further hospitalization. He will therefore be discharged. Diagnosis Primary Impression: Medical clearance for psychiatric admission Scripts Unable to Obtain Active Prescriptions or Reported Meds Pritesh Dela Cruz Jan 24, 2017 12:41
== END 2017-01-24 13:04 | disposition home or self-care (01) ==
LOC: NEPD 14:36 → NEPJ 01-24 13:04
DX: F10.120 Alcohol abuse with intoxication, uncomplicated (principal); F10.14 Alcohol abuse with alcohol-induced mood disorder; Y90.8 Blood alcohol level of 240 mg/100 ml or more; F31.9 Bipolar disorder, unspecified; F17.210 Nicotine dependence, cigarettes, uncomplicated
CPT/HCPCS: 80053; 80307; 85025; 99283

== ENCOUNTER 2017-02-20 13:34 | Emergency (ER) | payer OTHER ==
[~2017-02-20] VITALS: Ht 182.9 cm; Wt 80.0 kg
[2017-02-20 13:34] VITALS: BP 91/50; PULSE 87; RESP 12; TEMP 98.3; O2SAT 98
--- NOTE | 2017-02-20 15:13 | RADRPT ---
EXAM DATE/TIME: 02/20/2017 14:45 [facility] COMPARISON: SHOULDER RIGHT LTD (2VWS), October 23, 2016, 4:45. INDICATIONS : Right shoulder pain for several months MEDICAL HISTORY : None. SURGICAL HISTORY : None. ENCOUNTER: Initial ACUITY: 4 - 6 months PAIN SCORE: 4/10 LOCATION: Right entire shoulder FINDINGS: There is redemonstration of widening of the right a.c. joint. Otherwise, osseous structures are intac t without acute bony fracture or focal bony destruction. Glenohumeral joint is maintained. Bony hydraulic miner alization is normal. Right lung apex is clear. CONCLUSION: 1. Chronic right a.c. joint widening. 2. No acute abnormality or significant interval change. Mik Ritchie MD on February 20, 2017 at 15:08 Board Certified Radiologist. This report was verified electronically.
[2017-02-20 15:14] LABS: AUTOMATED NEUTROPHIL # 5.4 TH/MM3 (1.8-7.7); BASOPHIL # 0.1 TH/MM3 (0-0.2); BASOPHIL % 0.7 % (0.0-2.0); EOSINOPHIL # 0.1 TH/MM3 (0-0.4); EOSINOPHIL % 1.3 % (0.0-4.0); HEMATOCRIT 40.2 % (39.0-51.0); HEMOGLOBIN 13.8 GM/DL (13.0-17.0); LYMPH % 28.2 % (9.0-44.0); LYMPHOCYTE # 2.5 TH/MM3 (1.0-4.8); MEAN CELL VOLUME 99.8 FL (80.0-100.0); MEAN CORPUSCULAR HEMOGLOBIN 34.2 PG (27.0-34.0); MEAN CORPUSCULAR HGB CONC 34.2 % (32.0-36.0); MEAN PLATELET VOLUME 7.7 FL (7.0-11.0); MONO % 8.1 % (0.0-8.0); MONOCYTE # 0.7 TH/MM3 (0-0.9); NEUT % 61.7 % (16.0-70.0); PLATELET COUNT 214 TH/MM3 (150-450); RED BLOOD COUNT 4.02 MIL/MM3 (4.50-5.90); RED CELL DISTRIBUTION WIDTH 13.9 % (11.6-17.2); WHITE BLOOD COUNT 8.8 TH/MM3 (4.0-11.0)
--- NOTE | 2017-02-20 15:18 | PD ---
HPI Chief Complaint: Psychiatric Symptoms Time Seen by Provider: 14:15 Travel History International Travel<30 days: No Contact w/Intl Traveler<30days: No Traveled to known affect area: No History of Present Illness HPI 61 yo male here for evaluation of Rosales act. Patient rosales acted secondary to walking on a crowded street into traffic. Per patient has a history of psychiatric illness and supposed to be on medications but he has not. He denies any chest pain or shortness of breath. 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 He states that his lips on the streets. He states that he is not suicidal or homicidal to me. Patient was Ros[place] acted by police. He denies any recent falls or injuries. He denies any substance abuse today but he does state that he does do alcohol. He has been here before for psychiatric evaluation in the past. He is somewhat of a poor historian does appear to be somewhat intoxicated at this time. History is limited because of this. He asked for food and water. He denies any other medical issues at this time. He takes no medications. PFSH Past Medical History Bipolar Disorder: Yes Depression: Yes Diabetes: No Diminished Hearing: No Immunizations Current: Yes Social History Alcohol Use: Yes (daily) Tobacco Use: Yes (1/2 PPD) Substance Use: Yes Allergies-Medications (Allergen,Severity, Reaction): Coded Allergies: bee venom protein (honey bee) (Unverified Allergy, Severe, Anaphylaxis, ) Reported Meds & Prescriptions Reported Meds & Active Scripts Active Active Prescriptions or Reported Medications Unobtainable Review of Systems ROS Limitations: Intoxication, Poor Historian Except as stated in HPI: all other systems reviewed are Neg Physical Exam Exam Limitations: Intoxication, Poor Historian Narrative GENERAL: SKIN: Warm and dry. HEAD: Atraumatic. Normocephalic. EYES: Pupils equal and round. No scleral icterus. No injection or drainage. ENT: No nasal bleeding or discharge. Mucous membranes pink and moist. Tongue is midline. No uvula deviation. NECK: Trachea midline. No JVD. CARDIOVASCULAR: Regular rate and rhythm. RESPIRATORY: No accessory muscle use. Clear to auscultation. Breath sounds equal bilaterally. GASTROINTESTINAL: Abdomen soft, non-tender, nondistended. Hepatic and splenic margins not palpable. MUSCULOSKELETAL: Extremities without clubbing, cyanosis, or edema. No obvious deformities. Full range of motion of the upper and lower extremities bilaterally. 2+ pulses bilaterally. NEUROLOGICAL: Awake and alert. No obvious cranial nerve deficits. Motor grossly within normal limits. Five out of 5 muscle strength in the arms and legs. Normal speech. PSYCHIATRIC: Intoxicated mood and affect; insight and judgment normal. Data Data Last Documented VS Vital Signs Date Time Temp Pulse Resp B/P (MAP) Pulse Ox O2 Delivery O2 Flow Rate FiO2 02/20/17 13:34 98.3 87 12 91/50 (64) 98 Orders Orders Complete Blood Count With Diff (02/20/17 14:15) Comprehensive Metabolic Panel (02/20/17 14:15) Psych Screen (02/20/17 14:15) Drug Screen, Random Urine (02/20/17 14:15) Alcohol (Ethanol) (02/20/17 14:15) Salicylates (Aspirin) (02/20/17 14:15) Tylenol (Acetaminophen) (02/20/17 14:15) Shoulder, Complete (>2vws) (02/20/17 ) ^ Sitter (02/20/17 14:29) Labs Laboratory Tests Test 02/20/17 14:38 White Blood Count 8.8 TH/MM3 Red Blood Count 4.02 MIL/MM3 Hemoglobin 13.8 GM/DL Hematocrit 40.2 % Mean Corpuscular Volume 99.8 FL Mean Corpuscular Hemoglobin 34.2 PG Mean Corpuscular Hemoglobin Concent 34.2 % Red Cell Distribution Width 13.9 % Platelet Count 214 TH/MM3 Mean Platelet Volume 7.7 FL Neutrophils (%) (Auto) 61.7 % Lymphocytes (%) (Auto) 28.2 % Monocytes (%) (Auto) 8.1 % Eosinophils (%) (Auto) 1.3 % Basophils (%) (Auto) 0.7 % Neutrophils # (Auto) 5.4 TH/MM3 Lymphocytes # (Auto) 2.5 TH/MM3 Monocytes # (Auto) 0.7 TH/MM3 Eosinophils # (Auto) 0.1 TH/MM3 Basophils # (Auto) 0.1 TH/MM3 CBC Comment DIFF FINAL Differential Comment Blood Urea Nitrogen 9 MG/DL Creatinine 0.72 MG/DL Random Glucose 60 MG/DL Total Protein 7.6 GM/DL Albumin 3.7 GM/DL Calcium Level 8.6 MG/DL Alkaline Phosphatase 69 U/L Aspartate Amino Transf (AST/SGOT) 22 U/L Alanine Aminotransferase (ALT/SGPT) 21 U/L Total Bilirubin 0.2 MG/DL Sodium Level 144 MEQ/L Potassium Level 4.3 MEQ/L Chloride Level 111 MEQ/L Carbon Dioxide Level 26.3 MEQ/L Anion Gap 7 MEQ/L Estimat Glomerular Filtration Rate 111 ML/MIN Salicylates Level 2.6 MG/DL Acetaminophen Level LESS THAN 2.0 MCG/ML Ethyl Alcohol Level 294 MG/DL MDM Medical Decision Making Medical Screen Exam Complete: Yes Emergency Medical Condition: Yes Medical Record Reviewed: Yes Interpretation(s) CBC & BMP Diagram 02/20/17 14:38 Total Protein 7.6, Albumin 3.7, Calcium Level 8.6, Alkaline Phosphatase 69, Aspartate Amino Transf (AST/SGOT) 22, Alanine Aminotransferase (ALT/SGPT) 21, Total Bilirubin 0.2 Tox shows positive alcohol Differential Diagnosis Depression versus suicidal ideation versus anxiety versus adjustment disorder versus mood disorder versus bipolar disorder versus schizophrenia versus paranoid disorder versus psychosis versus substance abuse versus alcohol abuse versus alcohol induced psychosis versus homicidality addition versus cutting versus personality disorder Narrative Course 61-year-old male that presents to the ED for evaluation of psych. Patient was properly examined and was found to have signs and symptoms consistent psychiatric illness. No sign of acute medical distress. Patient was initially found to have a slightly low blood pressure. He does not appear to be any distress. I had the nurse recheck it when the patient going to the room and his blood pressure was in [id number] systolic. Labs were drawn. Patient will be medically clear. Okay to be seen by psych. Case discussed in my attending Dr. Junior who agrees with plan. Mental health screening was discussed with the patient. Diagnosis Primary Impression: Alcohol-induced mood disorder Scripts Unable to Obtain Active Prescriptions or Reported Meds Rich Todd Feb 20, 2017 15:18
[2017-02-20 15:26] LABS: ALBUMIN 3.7 GM/DL (3.4-5.0); ALT (GPT) 21 U/L (12-78); AST (GOT) 22 U/L (15-37); BICARBONATE 26.3 MEQ/L (21.0-32.0); BLOOD UREA NITROGEN 9 MG/DL (7-18); CALCIUM 8.6 MG/DL (8.5-10.1); CHLORIDE 111 MEQ/L (98-107); CREATININE 0.72 MG/DL (0.60-1.30); GLOMERULAR FILTRATION RATE 111 ML/MIN (>89); GLUCOSE,RANDOM 60 MG/DL (74-106); SODIUM (NA) 144 MEQ/L (136-145)
[2017-02-20 15:38] LABS: ALKALINE PHOSPHATASE 69 U/L (45-117); TOTAL BILIRUBIN ADULT 0.2 MG/DL (0.2-1.0); TOTAL PROTEIN 7.6 GM/DL (6.4-8.2)
[2017-02-20 15:42] LABS: ACETAMINOPHEN LESS THAN 2.0 MCG/ML (10.0-30.0)
[2017-02-20] MEDS ORDERED: LORazepam 1 MG TAB PO PRN (16:45)
[2017-02-20] MEDS ORDERED: LORazepam 2 MG TAB PO PRN (16:45)
[2017-02-20] MEDS ORDERED: ONDANSETRON ODT 4 MG TAB PO PRN (16:45)
[2017-02-20] MEDS ORDERED: FLUMAZENIL 0.5 MG/5 ML VIAL IV PUSH PRN (16:45)
[2017-02-20] MEDS ORDERED: ACETAMINOPHEN 325 MG TAB PO PRN (16:45)
[2017-02-20 21:15] VITALS: BP 104/62; PULSE 94; RESP 17; O2SAT 98
== END 2017-02-20 23:56 ==
LOC: NEPE 13:34 → NEPJ 23:56
DX: F10.94 Alcohol use, unspecified with alcohol-induced mood disorder (principal); F31.9 Bipolar disorder, unspecified; F17.200 Nicotine dependence, unspecified, uncomplicated; M25.511 Pain in right shoulder; Y90.8 Blood alcohol level of 240 mg/100 ml or more
CPT/HCPCS: 73030; 80053; 80307; 85025; 96374

== ENCOUNTER 2017-05-07 23:03 | Emergency (ER) | payer OTHER ==
[~2017-05-07] VITALS: Ht 188 cm; Wt 80.0 kg
[2017-05-07 23:13] VITALS: BP 105/69; PULSE 87; RESP 16; TEMP 98.8; O2SAT 92
[2017-05-08 00:38] LABS: AUTOMATED NEUTROPHIL # 2.4 TH/MM3 (1.8-7.7); BASOPHIL % 0.7 % (0.0-2.0); EOSINOPHIL # 0.2 TH/MM3 (0-0.4); EOSINOPHIL % 3.1 % (0.0-4.0); HEMATOCRIT 37.7 % (39.0-51.0); HEMOGLOBIN 13.6 GM/DL (13.0-17.0); LYMPH % 38.3 % (9.0-44.0); LYMPHOCYTE # 1.9 TH/MM3 (1.0-4.8); MEAN CELL VOLUME 93.9 FL (80.0-100.0); MEAN CORPUSCULAR HEMOGLOBIN 33.9 PG (27.0-34.0); MEAN PLATELET VOLUME 8.2 FL (7.0-11.0); MONO % 10.4 % (0.0-8.0); MONOCYTE # 0.5 TH/MM3 (0-0.9); NEUT % 47.5 % (16.0-70.0); PLATELET COUNT 129 TH/MM3 (150-450); RED BLOOD COUNT 4.02 MIL/MM3 (4.50-5.90); RED CELL DISTRIBUTION WIDTH 13.5 % (11.6-17.2)
[2017-05-08 00:50] LABS: MEAN CORPUSCULAR HGB CONC 36.1 % (32.0-36.0)
[2017-05-08 00:59] LABS: ALBUMIN 3.5 GM/DL (3.4-5.0); ALT (GPT) 30 U/L (12-78); AST (GOT) 35 U/L (15-37); BICARBONATE 24.8 MEQ/L (21.0-32.0); BLOOD UREA NITROGEN 8 MG/DL (7-18); CALCIUM 8.4 MG/DL (8.5-10.1); CHLORIDE 98 MEQ/L (98-107); CREATININE 0.71 MG/DL (0.60-1.30); GLOMERULAR FILTRATION RATE 113 ML/MIN (>89); GLUCOSE,RANDOM 76 MG/DL (74-106); SODIUM (NA) 134 MEQ/L (136-145)
[2017-05-08 01:03] LABS: ALKALINE PHOSPHATASE 71 U/L (45-117); TOTAL BILIRUBIN ADULT 0.5 MG/DL (0.2-1.0); TOTAL PROTEIN 7.1 GM/DL (6.4-8.2)
--- NOTE | 2017-05-08 02:22 | PD ---
HPI Chief Complaint: Psychiatric Symptoms Time Seen by Provider: 02:17 Travel History International Travel<30 days: No Contact w/Intl Traveler<30days: No Traveled to known affect area: No History of Present Illness HPI 61-year-old white male presents emergency department under a [place] act by PD. Patient had contacted PD advising them he was homicidal. He denies any active plan on hurting anyone. He denies any suicidal ideation. No toxic ingestions. He does admit to a large amount of alcohol. PFSH Past Medical History Bipolar Disorder: Yes Depression: Yes Diabetes: No Diminished Hearing: No Immunizations Current: Yes Social History Alcohol Use: Yes (daily) Tobacco Use: Yes (/2 PPD) Substance Use: Yes Allergies-Medications (Allergen,Severity, Reaction): Coded Allergies: bee venom protein (honey bee) (Unverified Allergy, Severe, Anaphylaxis, 05/07/17) Reported Meds & Prescriptions Reported Meds & Active Scripts Active Active Prescriptions or Reported Medications Unobtainable Review of Systems Except as stated in HPI: all other systems reviewed are Neg General / Constitutional: No: Fever Eyes: No: Visual changes HENT: No: Headaches Cardiovascular: No: Chest Pain or Discomfort Respiratory: No: Shortness of Breath Gastrointestinal: No: Abdominal Pain Genitourinary: No: Dysuria Musculoskeletal: No: Pain Skin: No Rash Neurologic: No: Weakness Psychiatric: Positive: Homicidal Ideation, No: Anxiety, Depression, Suicidal Ideations, Disorder of Thought, Mood Disorder, Substance Abuse Endocrine: No: Polydipsia Hematologic/Lymphatic: No: Easy Bruising Physical Exam Narrative MDM: High Differential diagnoses: Schizophrenia, schizoaffective disorder, bipolar, anxiety, depression, adjustment reaction, mood disorder NOS, ODD, depressive disorder NOS, dementia, dementia with agitation, psychosis NOS, substance induced mood disorder, DMDD, Asperger syndrome, infection,electrolyte abnormality, malingering. Mental health screening discussed with the patient. Psychiatric screen ordered. Data Data Last Documented VS Vital Signs Date Time Temp Pulse Resp B/P (MAP) Pulse Ox O2 Delivery O2 Flow Rate FiO2 05/07/17 23:13 98.8 87 16 105/69 (81) 92 Orders Orders Complete Blood Count With Diff (05/07/17 23:31) Comprehensive Metabolic Panel (05/07/17 23:31) Urinalysis - C+S If Indicated (05/07/17 23:31) Alcohol (Ethanol) (05/07/17 23:31) Psych Screen (05/07/17 23:31) Labs Laboratory Tests Test 05/08/17 00:00 White Blood Count 5.0 TH/MM3 Red Blood Count 4.02 MIL/MM3 Hemoglobin 13.6 GM/DL Hematocrit 37.7 % Mean Corpuscular Volume 93.9 FL Mean Corpuscular Hemoglobin 33.9 PG Mean Corpuscular Hemoglobin Concent 36.1 % Red Cell Distribution Width 13.5 % Platelet Count 129 TH/MM3 Mean Platelet Volume 8.2 FL Neutrophils (%) (Auto) 47.5 % Lymphocytes (%) (Auto) 38.3 % Monocytes (%) (Auto) 10.4 % Eosinophils (%) (Auto) 3.1 % Basophils (%) (Auto) 0.7 % Neutrophils # (Auto) 2.4 TH/MM3 Lymphocytes # (Auto) 1.9 TH/MM3 Monocytes # (Auto) 0.5 TH/MM3 Eosinophils # (Auto) 0.2 TH/MM3 Basophils # (Auto) 0.0 TH/MM3 CBC Comment AUTO DIFF Differential Comment AUTO DIFF CONFIRMED Platelet Estimate LOW Platelet Morphology Comment NORMAL Basophilic Stippling FAINT Blood Urea Nitrogen 8 MG/DL Creatinine 0.71 MG/DL Random Glucose 76 MG/DL Total Protein 7.1 GM/DL Albumin 3.5 GM/DL Calcium Level 8.4 MG/DL Alkaline Phosphatase 71 U/L Aspartate Amino Transf (AST/SGOT) 35 U/L Alanine Aminotransferase (ALT/SGPT) 30 U/L Total Bilirubin 0.5 MG/DL Sodium Level 134 MEQ/L Potassium Level 3.6 MEQ/L Chloride Level 98 MEQ/L Carbon Dioxide Level 24.8 MEQ/L Anion Gap 11 MEQ/L Estimat Glomerular Filtration Rate 113 ML/MIN Ethyl Alcohol Level 333 MG/DL [facility] Medical Decision Making Medical Screen Exam Complete: Yes Emergency Medical Condition: Yes Medical Record Reviewed: Yes Interpretation(s) Laboratory Tests Test 05/08/17 00:00 White Blood Count 5.0 TH/MM3 Red Blood Count 4.02 MIL/MM3 Hemoglobin 13.6 GM/DL Hematocrit 37.7 % Mean Corpuscular Volume 93.9 FL Mean Corpuscular Hemoglobin 33.9 PG Mean Corpuscular Hemoglobin Concent 36.1 % Red Cell Distribution Width 13.5 % Platelet Count 129 TH/MM3 Mean Platelet Volume 8.2 FL Neutrophils (%) (Auto) 47.5 % Lymphocytes (%) (Auto) 38.3 % Monocytes (%) (Auto) 10.4 % Eosinophils (%) (Auto) 3.1 % Basophils (%) (Auto) 0.7 % Neutrophils # (Auto) 2.4 TH/MM3 Lymphocytes # (Auto) 1.9 TH/MM3 Monocytes # (Auto) 0.5 TH/MM3 Eosinophils # (Auto) 0.2 TH/MM3 Basophils # (Auto) 0.0 TH/MM3 CBC Comment AUTO DIFF Differential Comment AUTO DIFF CONFIRMED Platelet Estimate LOW Platelet Morphology Comment NORMAL Basophilic Stippling FAINT Blood Urea Nitrogen 8 MG/DL Creatinine 0.71 MG/DL Random Glucose 76 MG/DL Total Protein 7.1 GM/DL Albumin 3.5 GM/DL Calcium Level 8.4 MG/DL Alkaline Phosphatase 71 U/L Aspartate Amino Transf (AST/SGOT) 35 U/L Alanine Aminotransferase (ALT/SGPT) 30 U/L Total Bilirubin 0.5 MG/DL Sodium Level 134 MEQ/L Potassium Level 3.6 MEQ/L Chloride Level 98 MEQ/L Carbon Dioxide Level 24.8 MEQ/L Anion Gap 11 MEQ/L Estimat Glomerular Filtration Rate 113 ML/MIN Ethyl Alcohol Level 333 MG/DL Differential Diagnosis MDM: High Differential diagnoses: Schizophrenia, schizoaffective disorder, bipolar, anxiety, depression, adjustment reaction, mood disorder NOS, ODD, depressive disorder NOS, dementia, dementia with agitation, psychosis NOS, substance induced mood disorder, DMDD, Asperger syndrome, infection,electrolyte abnormality, malingering. Narrative Course Mental health screening discussed with the patient. Psychiatric screen ordered. The patient has been medically cleared. This is medical clearance for psychiatric admission, alcohol abuse with intoxication, alcohol induced mood disorder Diagnosis Primary Impression: Medical clearance for psychiatric admission Additional Impression: Alcohol abuse with intoxication Scripts Unable to Obtain Active Prescriptions or Reported Meds Condition: Darryl Elliott May 08, 2017 02:22
[2017-05-08 05:22] VITALS: BP 117/90; PULSE 78; RESP 17; O2SAT 96
[2017-05-08 09:14] VITALS: BP 111/76; PULSE 67; RESP 19; O2SAT 97
--- NOTE | 2017-05-08 09:14 | PD ---
Physical Exam Date Seen by Provider: May 08, 2017 Time Seen by Provider: 09:13 Narrative 61-year-old male previously medically cleared for psychiatric evaluation under the Caba act, has been seen and evaluated by a psychiatrist, and deemed psychiatrically stable for discharge at this time. Patient is medically stable for discharge at this time. Follow-up will be based on psychiatric note. Data Data Last Documented VS Vital Signs Date Time Temp Pulse Resp B/P (MAP) Pulse Ox O2 Delivery O2 Flow Rate FiO2 05/08/17 05:22 78 17 117/90 (99) 96 Room Air 05/07/17 23:13 98.8 Orders Orders Complete Blood Count With Diff (05/07/17 23:31) Comprehensive Metabolic Panel (05/07/17 23:31) Urinalysis - C+S If Indicated (05/07/17 23:31) Alcohol (Ethanol) (05/07/17 23:31) Psych Screen (05/07/17 23:31) Labs Laboratory Tests Test 05/08/17 00:00 White Blood Count 5.0 TH/MM3 Red Blood Count 4.02 MIL/MM3 Hemoglobin 13.6 GM/DL Hematocrit 37.7 % Mean Corpuscular Volume 93.9 FL Mean Corpuscular Hemoglobin 33.9 PG Mean Corpuscular Hemoglobin Concent 36.1 % Red Cell Distribution Width 13.5 % Platelet Count 129 TH/MM3 Mean Platelet Volume 8.2 FL Neutrophils (%) (Auto) 47.5 % Lymphocytes (%) (Auto) 38.3 % Monocytes (%) (Auto) 10.4 % Eosinophils (%) (Auto) 3.1 % Basophils (%) (Auto) 0.7 % Neutrophils # (Auto) 2.4 TH/MM3 Lymphocytes # (Auto) 1.9 TH/MM3 Monocytes # (Auto) 0.5 TH/MM3 Eosinophils # (Auto) 0.2 TH/MM3 Basophils # (Auto) 0.0 TH/MM3 CBC Comment AUTO DIFF Differential Comment AUTO DIFF CONFIRMED Platelet Estimate LOW Platelet Morphology Comment NORMAL Basophilic Stippling FAINT Blood Urea Nitrogen 8 MG/DL Creatinine 0.71 MG/DL Random Glucose 76 MG/DL Total Protein 7.1 GM/DL Albumin 3.5 GM/DL Calcium Level 8.4 MG/DL Alkaline Phosphatase 71 U/L Aspartate Amino Transf (AST/SGOT) 35 U/L Alanine Aminotransferase (ALT/SGPT) 30 U/L Total Bilirubin 0.5 MG/DL Sodium Level 134 MEQ/L Potassium Level 3.6 MEQ/L Chloride Level 98 MEQ/L Carbon Dioxide Level 24.8 MEQ/L Anion Gap 11 MEQ/L Estimat Glomerular Filtration Rate 113 ML/MIN Ethyl Alcohol Level 333 MG/DL [facility] Medical Record Reviewed: Yes Supervised Visit with KENZIE: Yes Narrative Course 61-year-old male previously medically cleared for psychiatric evaluation under the [place] act, has been seen and evaluated by a psychiatrist, and deemed psychiatrically stable for discharge at this time. Patient is medically stable for discharge at this time. Follow-up will be based on psychiatric note. Diagnosis Primary Impression: Medical clearance for psychiatric admission Additional Impression: Alcohol abuse with intoxication Referrals: [facility] Patient Instructions: General Instructions Scripts Unable to Obtain Active Prescriptions or Reported Meds Disposition: 01 DISCHARGE HOME Condition: Stable Boni Antunez May 08, 2017 09:14
--- NOTE | 2017-05-08 11:27 | PD.PSY.CON ---
Psych & Development History Hx of Psych Illness History Of Psychiatric: Yes History Psychiatric Illness: Other (Alocohol abuse) Family History Of Psychiatric: No Medical History Medical History: No Legal History History of Legal Involvement: No Personal Strengths & Assets Strengths (Minimum of 2): Positive, Verbal Review of Systems All other systems negative?: Yes Mental Examination Pt Able to Contract for Safety: Yes Behavioral/Attitude: Cooperative Speech: Unremarkable Orientation: Person, Place, Time, Date, Situation Memory: Unremarkable Impulse Control Description: Fair Acts Impulsively: Yes Thought Process: Organized Thought Content: Unremarkable Attention and Concentration: Good Suicidal Ideation: No Previous Suicide Attempts: No Homicidal Ideation: No Previous Homicide Attempts: No Insight: Fair Judgement: Impulsive Reliability: Adequate Affect: Euthymic Mood: Appropriate Cognition: Alert, Oriented x3 Motor Activity: Normal gait Assessment and Plan Personal safety plan: Pt. seem and evaluated . He is calm and cooperative- alert, awake and oriented t time place and person. He denies any suicidal or homicidal thoughts. Labs: Blood alcohol level (on arrival) ; 333 mg/dl Assessment: F10.120 - Alcohol abuse with Intoxication Plan : D/C pt. home Recomm; out pt/ substance abuse treatment. The patient, Nikolay Cardona, shall be discharged/released from any involuntary status for a mental illness pursuant to chapter [place], [place] Statutes. Patient condition on discharge: Stable Discharge disposition: Discharge Home Release patient to custody of: Johnathon Vasquez MD May 08, 2017 11:27
== END 2017-05-08 09:24 | disposition home or self-care (01) ==
LOC: NEPD 23:03
DX: F10.129 Alcohol abuse with intoxication, unspecified (principal); F31.9 Bipolar disorder, unspecified; F17.210 Nicotine dependence, cigarettes, uncomplicated; Y90.8 Blood alcohol level of 240 mg/100 ml or more
CPT/HCPCS: 80053; 80307; 85025; 99284

== ENCOUNTER 2017-06-16 22:23 | Emergency (ER) | payer OTHER ==
[~2017-06-16] VITALS: Ht 185.4 cm; Wt 78.0 kg
[2017-06-16 22:30] VITALS: BP 121/95; PULSE 86; RESP 18; TEMP 97.5; O2SAT 95
[2017-06-16 23:07] LABS: AUTOMATED NEUTROPHIL # 3.5 TH/MM3 (1.8-7.7); BASOPHIL # 0.1 TH/MM3 (0-0.2); BASOPHIL % 0.9 % (0.0-2.0); EOSINOPHIL # 0.1 TH/MM3 (0-0.4); EOSINOPHIL % 0.9 % (0.0-4.0); HEMATOCRIT 41.3 % (39.0-51.0); HEMOGLOBIN 14.2 GM/DL (13.0-17.0); LYMPHOCYTE # 2.6 TH/MM3 (1.0-4.8); MEAN CELL VOLUME 94.1 FL (80.0-100.0); MEAN CORPUSCULAR HEMOGLOBIN 32.4 PG (27.0-34.0); MEAN CORPUSCULAR HGB CONC 34.5 % (32.0-36.0); MEAN PLATELET VOLUME 7.8 FL (7.0-11.0); MONO % 8.3 % (0.0-8.0); MONOCYTE # 0.6 TH/MM3 (0-0.9); NEUT % 51.9 % (16.0-70.0); PLATELET COUNT 199 TH/MM3 (150-450); RED BLOOD COUNT 4.39 MIL/MM3 (4.50-5.90); RED CELL DISTRIBUTION WIDTH 14.5 % (11.6-17.2); WHITE BLOOD COUNT 6.8 TH/MM3 (4.0-11.0)
[2017-06-16 23:35] LABS: ALBUMIN 3.8 GM/DL (3.4-5.0); AST (GOT) 55 U/L (15-37); BICARBONATE 25.7 MEQ/L (21.0-32.0); BLOOD UREA NITROGEN 6 MG/DL (7-18); CHLORIDE 107 MEQ/L (98-107); CREATININE 0.76 MG/DL (0.60-1.30); GLOMERULAR FILTRATION RATE 104 ML/MIN (>89); GLUCOSE,RANDOM 72 MG/DL (74-106); SODIUM (NA) 143 MEQ/L (136-145)
[2017-06-16 23:36] LABS: ALT (GPT) 30 U/L (12-78)
[2017-06-16 23:46] LABS: ALKALINE PHOSPHATASE 59 U/L (45-117); TOTAL BILIRUBIN ADULT 0.4 MG/DL (0.2-1.0); TOTAL PROTEIN 8.1 GM/DL (6.4-8.2)
--- NOTE | 2017-06-17 01:04 | PD ---
HPI Chief Complaint: Psychiatric Symptoms Time Seen by Provider: 00:59 Travel History International Travel<30 days: No Contact w/Intl Traveler<30days: No Traveled to known affect area: No History of Present Illness HPI 61-year-old white male presents to emergency department under [place] act by PD. Patient had advised PD that he was hungry and would lay on the railroad tracks to kill himself. The patient appears intoxicated. This is a patient known to the medical staff and myself for prior admissions due to alcohol. The patient does deny suicidal ideation and homicidal ideation. The patient is too inebriated to answer any significant history at this time. PFSH Past Medical History Bipolar Disorder: Yes Depression: Yes Diabetes: No Diminished Hearing: No Immunizations Current: Yes Tetanus Vaccination: < 5 Years Past Surgical History Surgical History: No Previous Surgery Social History Alcohol Use: Yes (daily) Tobacco Use: Yes (03/09 PPD) Substance Use: Yes Allergies-Medications (Allergen,Severity, Reaction): Coded Allergies: bee venom protein (honey bee) (Unverified Allergy, Severe, Anaphylaxis, 05/07/17) Reported Meds & Prescriptions Reported Meds & Active Scripts Active No Active Prescriptions or Reported Medications Review of Systems ROS Limitations: Intoxication General / Constitutional: No: Fever Eyes: No: Visual changes HENT: No: Headaches Cardiovascular: No: Chest Pain or Discomfort Respiratory: No: Shortness of Breath Gastrointestinal: No: Abdominal Pain Genitourinary: No: Dysuria Musculoskeletal: No: Pain Skin: No Rash Neurologic: No: Weakness Psychiatric: Positive: Substance Abuse, No: Anxiety, Depression, Suicidal Ideations, Disorder of Thought, Mood Disorder, Homicidal Ideation Endocrine: No: Polydipsia Hematologic/Lymphatic: No: Easy Bruising Physical Exam Narrative GENERAL: Well-nourished, well-developed patient. Patient is well-appearing. There is no evidence of trauma. Smells of EtOH appears heavily intoxicated. SKIN: Warm and dry. HEAD: Normocephalic and atraumatic. EYES: No scleral icterus. No injection or drainage. ENT: No nasal drainage noted. Mucous membranes pink. Airway patent. NECK: Supple, trachea midline. Moves head freely without obvious discomfort. CARDIOVASCULAR: Regular rate and rhythm without murmurs, gallops, or rubs. RESPIRATORY: Breath sounds equal bilaterally. No accessory muscle use. GASTROINTESTINAL: Abdomen soft, non-tender, nondistended. EXTREMITIES: No cyanosis or edema. BACK: Nontender without obvious deformity. No CVA tenderness. NEURO: Patient is alert and oriented. no sensorimotor deficits. Nonfocal. Slurred speech. PSYCH: No delusions. No auditory or visual hallucinations. Data Data Last Documented VS Vital Signs Date Time Temp Pulse Resp B/P (MAP) Pulse Ox O2 Delivery O2 Flow Rate FiO2 06/16/17 22:30 97.5 86 18 121/95 (104) 95 Orders Orders Complete Blood Count With Diff (06/16/17 22:34) Comprehensive Metabolic Panel (06/16/17 22:34) Thyroid Stimulating Hormone (06/16/17 22:34) Psych Screen (06/16/17 22:34) Drug Screen, Random Urine (06/16/17 22:34) Alcohol (Ethanol) (06/16/17 22:34) Labs Laboratory Tests Test 06/16/17 22:57 06/16/17 23:20 White Blood Count 6.8 TH/MM3 Red Blood Count 4.39 MIL/MM3 Hemoglobin 14.2 GM/DL Hematocrit 41.3 % Mean Corpuscular Volume 94.1 FL Mean Corpuscular Hemoglobin 32.4 PG Mean Corpuscular Hemoglobin Concent 34.5 % Red Cell Distribution Width 14.5 % Platelet Count 199 TH/MM3 Mean Platelet Volume 7.8 FL Neutrophils (%) (Auto) 51.9 % Lymphocytes (%) (Auto) 38.0 % Monocytes (%) (Auto) 8.3 % Eosinophils (%) (Auto) 0.9 % Basophils (%) (Auto) 0.9 % Neutrophils # (Auto) 3.5 TH/MM3 Lymphocytes # (Auto) 2.6 TH/MM3 Monocytes # (Auto) 0.6 TH/MM3 Eosinophils # (Auto) 0.1 TH/MM3 Basophils # (Auto) 0.1 TH/MM3 CBC Comment DIFF FINAL Differential Comment Blood Urea Nitrogen 6 MG/DL Creatinine 0.76 MG/DL Random Glucose 72 MG/DL Total Protein 8.1 GM/DL Albumin 3.8 GM/DL Calcium Level 9.0 MG/DL Alkaline Phosphatase 59 U/L Aspartate Amino Transf (AST/SGOT) 55 U/L Alanine Aminotransferase (ALT/SGPT) 30 U/L Total Bilirubin 0.4 MG/DL Sodium Level 143 MEQ/L Potassium Level 4.0 MEQ/L Chloride Level 107 MEQ/L Carbon Dioxide Level 25.7 MEQ/L Anion Gap 10 MEQ/L Estimat Glomerular Filtration Rate 104 ML/MIN Thyroid Stimulating Hormone 3rd Gen 3.200 uIU/ML Ethyl Alcohol Level 363 MG/DL Urine Opiates Screen NEG Urine Barbiturates Screen NEG Urine Amphetamines Screen NEG Urine Benzodiazepines Screen NEG Urine Cocaine Screen NEG Urine Cannabinoids Screen NEG MDM Medical Decision Making Medical Screen Exam Complete: Yes Emergency Medical Condition: Yes Medical Record Reviewed: Yes Interpretation(s) Laboratory Tests Test 06/16/17 22:57 06/16/17 23:20 White Blood Count 6.8 TH/MM3 Red Blood Count 4.39 MIL/MM3 Hemoglobin 14.2 GM/DL Hematocrit 41.3 % Mean Corpuscular Volume 94.1 FL Mean Corpuscular Hemoglobin 32.4 PG Mean Corpuscular Hemoglobin Concent 34.5 % Red Cell Distribution Width 14.5 % Platelet Count 199 TH/MM3 Mean Platelet Volume 7.8 FL Neutrophils (%) (Auto) 51.9 % Lymphocytes (%) (Auto) 38.0 % Monocytes (%) (Auto) 8.3 % Eosinophils (%) (Auto) 0.9 % Basophils (%) (Auto) 0.9 % Neutrophils # (Auto) 3.5 TH/MM3 Lymphocytes # (Auto) 2.6 TH/MM3 Monocytes # (Auto) 0.6 TH/MM3 Eosinophils # (Auto) 0.1 TH/MM3 Basophils # (Auto) 0.1 TH/MM3 CBC Comment DIFF FINAL Differential Comment Blood Urea Nitrogen 6 MG/DL Creatinine 0.76 MG/DL Random Glucose 72 MG/DL Total Protein 8.1 GM/DL Albumin 3.8 GM/DL Calcium Level 9.0 MG/DL Alkaline Phosphatase 59 U/L Aspartate Amino Transf (AST/SGOT) 55 U/L Alanine Aminotransferase (ALT/SGPT) 30 U/L Total Bilirubin 0.4 MG/DL Sodium Level 143 MEQ/L Potassium Level 4.0 MEQ/L Chloride Level 107 MEQ/L Carbon Dioxide Level 25.7 MEQ/L Anion Gap 10 MEQ/L Estimat Glomerular Filtration Rate 104 ML/MIN Thyroid Stimulating Hormone 3rd Gen 3.200 uIU/ML Ethyl Alcohol Level 363 MG/DL Urine Opiates Screen NEG Urine Barbiturates Screen NEG Urine Amphetamines Screen NEG Urine Benzodiazepines Screen NEG Urine Cocaine Screen NEG Urine Cannabinoids Screen NEG Differential Diagnosis MDM: High Differential diagnoses: Schizophrenia, schizoaffective disorder, bipolar, anxiety, depression, adjustment reaction, mood disorder NOS, ODD, depressive disorder NOS, dementia, dementia with agitation, psychosis NOS, substance induced mood disorder, infection,electrolyte abnormality, malingering. Narrative Course Mental health screening discussed with the patient. Psychiatric screen ordered. The patient has been medically cleared. This is medical clearance for psychiatric admission, alcohol abuse with intoxication Diagnosis Primary Impression: Medical clearance for psychiatric admission Additional Impression: Alcohol abuse with intoxication Scripts No Active Prescriptions or Reported Meds Condition: Darryl Elliott Jun 17, 2017 01:04
[2017-06-17 05:55] VITALS: BP 90/57; PULSE 88; RESP 18; TEMP 98.1; O2SAT 98
--- NOTE | 2017-06-17 10:25 | PD ---
History of Present Illness Chief Complaint: Psychiatric Symptoms Time Seen by Provider: 10:15 Travel History International Travel<30 Days: No Contact w/Intl Traveler<30days: No Known affected area: No Legal Status Legal Status: Caba Act Caba Act Signed By: Citlaly Hernandez History of Present Illness: History of Present Illness HPI 61-year-old white, single, homeless male with history of substance use disorder who presents to emergency department under [place] act by PD. Patient had advised PD that he was hungry and would lay on the railroad tracks to kill himself. The patient did not make any attempts at harming himself. As per ED documentation the patient appears intoxicated and his blood alcohol level on arrival to the ED is 363. It is also reported to by ED staff that "the patient does deny suicidal ideation and homicidal ideation". The patient is too inebriated to answer any significant history at this time. The patient was allowed to remain in the ED until he was clinically sober in order to engage in psychiatric evaluation. He presented no suicidality while he was in the ED and no behavioral concerns were reported by nursing staff. EMR is reviewed. The patient has multiple visits to the ED for substance related issues. His last visit was in May 2017. Patient is seen. [facility] recreational facilities manager present. Clinically sober at this time. Patient is alert, oriented, disheveled appearance with reddish. Speech is clear and logical of normal rate and tone. No evidence of any psychosis, margarita or hypomania. Patient describes mood as depressed. He states he wants to do things differently and wants a change. He is accepting of detox services at [facility] and wants to be sent to that facility for detox. There is no suicidal or homicidal ideation intent or plan. hotel recreational facilities manager will assist him with getting there. PFSH Past Medical History Bipolar Disorder: Yes Depression: Yes Diabetes: No Diminished Hearing: No Immunizations Current: Yes Tetanus Vaccination: < 5 Years Past Surgical History Surgical History: No Previous Surgery Psychiatric History Psychiatric History Hx Psychiatric Treatment: HX: DEPRESSION, BIPOLAR DISORDER [facility] detox and mental in Feb 2017. Prescribed Seroquel and mood stabilizers. Patient never picked up prescription PATIENT WAS LAST SEEN ON 05/08/[address] RAYA, PSYCHIATRIST. AT THAT TIME, DR. RAYA DID NOT FEEL THE PATIENT MET CABA ACT CRITERIA AND RECOMMENDED PATIENT FOLLOW UP WITH SUBSTANCE ABUSE TREATMENT. PATIENT WAS DISCHARGED HOME. History of Inpatient Treatment: Yes ([facility]) Guns or firearms in home: No Social History Born in [place]. In [place] since 1997. x 30 years. One step daughter and a stepson. Homeless x since 2006. Unemployed. Hx Alcohol Use: Yes (daily) Hx Tobacco Use: Yes (/2 PPD) Hx Substance Use: Yes Substance Use Type: Alcohol, Marijuana, Heroin, Cocaine, Other Other Substances Used: Reports having used most illegal substances. Hx of Substance Use Treatment: Yes Family Psychiatric History Negative Allergies-Medications (Allergen,Severity, Reaction): Coded Allergies: bee venom protein (honey bee) (Unverified Allergy, Severe, Anaphylaxis, 05/07/17) Reported Meds & Prescriptions Reported Meds & Active Scripts Active No Active Prescriptions or Reported Medications Review of Systems Psychiatric: COMPLAINS OF: Depression Except as stated in HPI: all other systems reviewed are Neg Mental Status Examination Appearance: Disheveled (In hospital paper scrubs) Consciousness: Alert Orientation: x4 Motor Activity: Other Speech: Unremarkable Language: Adequate Fund of Knowledge: Adequate Attention and Concentration: Adequate Memory: Unremarkable Mood: Appropriate Affect: Appropriate Thought Process & Associations: Intact, Logical, Goal directed Thought Content: Appropriate Hallucination Type: None Delusion Type: None Suicidal Ideation: No Suicidal Plan: No Suicidal Intention: No Homicidal Ideation: No Homicidal Plan: No Homicidal Intention: No Insight: Fair Judgment: Adequate [facility] Medical Decision Making Medical Record Reviewed: Yes Assessment/Plan 61-year-old white, single, homeless male with history of substance use disorder who presents to emergency department under C[place] act by PD. Patient had advised PD that he was hungry and would lay on the railroad tracks to kill himself. The patient did not make any attempts at harming himself. His blood alcohol level was 363 when he was placed under the Caba act. The patient was allowed enough time to sober up clinically. He presented no suicidality. The patient wants to go to the [facility] for detox. He wants to to work on his sobriety. He will be provided with bus passes to get there. The BA is lifted. Psychiatrically clear for discharge from ED. Orders Orders Complete Blood Count With Diff (06/16/17 22:34) Comprehensive Metabolic Panel (06/16/17 22:34) Thyroid Stimulating Hormone (06/16/17 22:34) Psych Screen (06/16/17 22:34) Drug Screen, Random Urine (06/16/17 22:34) Alcohol (Ethanol) (06/16/17 22:34) Results Vital Signs Date Time Temp Pulse Resp B/P (MAP) Pulse Ox O2 Delivery O2 Flow Rate FiO2 06/17/17 05:55 98.1 88 18 90/57 (68) 98 Room Air 06/16/17 22:30 97.5 86 18 121/95 (104) 95 Laboratory Tests Test 06/16/17 22:57 06/16/17 23:20 White Blood Count 6.8 Red Blood Count 4.39 Hemoglobin 14.2 Hematocrit 41.3 Mean Corpuscular Volume 94.1 Mean Corpuscular Hemoglobin 32.4 Mean Corpuscular Hemoglobin Concent 34.5 Red Cell Distribution Width 14.5 Platelet Count 199 Mean Platelet Volume 7.8 Neutrophils (%) (Auto) 51.9 Lymphocytes (%) (Auto) 38.0 Monocytes (%) (Auto) 8.3 Eosinophils (%) (Auto) 0.9 Basophils (%) (Auto) 0.9 Neutrophils # (Auto) 3.5 Lymphocytes # (Auto) 2.6 Monocytes # (Auto) 0.6 Eosinophils # (Auto) 0.1 Basophils # (Auto) 0.1 CBC Comment DIFF FINAL Differential Comment Blood Urea Nitrogen 6 Creatinine 0.76 Random Glucose 72 Total Protein 8.1 Albumin 3.8 Calcium Level 9.0 Alkaline Phosphatase 59 Aspartate Amino Transf (AST/SGOT) 55 Alanine Aminotransferase (ALT/SGPT) 30 Total Bilirubin 0.4 Sodium Level 143 Potassium Level 4.0 Chloride Level 107 Carbon Dioxide Level 25.7 Anion Gap 10 Estimat Glomerular Filtration Rate 104 Thyroid Stimulating Hormone 3rd Gen 3.200 Ethyl Alcohol Level 363 Urine Opiates Screen NEG Urine Barbiturates Screen NEG Urine Amphetamines Screen NEG Urine Benzodiazepines Screen NEG Urine Cocaine Screen NEG Urine Cannabinoids Screen NEG Diagnosis Primary Impression: Alcohol abuse with intoxication Additional Impression: Medical clearance for psychiatric admission Psychiatrically Cleared: Yes Prescriptions No Active Prescriptions or Reported Meds Disposition: DISCHARGE HOME Condition: Stable Problem Qualifiers Niharika Corral Jun 17, 2017 10:25
[2017-06-17 10:30] VITALS: BP 115/70; PULSE 74; RESP 16; O2SAT 95
--- NOTE | 2017-06-17 10:43 | PD ---
Physical Exam Narrative GENERAL: 61-year-old male who appears disheveled SKIN: Focused skin assessment warm/dry. HEAD: Atraumatic. Normocephalic. EYES: Pupils equal and round. No scleral icterus. No injection or drainage. ENT: No nasal bleeding or discharge. Mucous membranes pink and moist. NECK: Trachea midline. No JVD. CARDIOVASCULAR: Regular rate and rhythm. RESPIRATORY: No accessory muscle use. No increased effort MUSCULOSKELETAL: No obvious deformities. No clubbing. No cyanosis. NEUROLOGICAL: Awake and alert. No obvious cranial nerve deficits. Motor grossly within normal limits. Normal speech. Steady gait Data Data Last Documented VS Vital Signs Date Time Temp Pulse Resp B/P (MAP) Pulse Ox O2 Delivery O2 Flow Rate FiO2 06/17/17 10:30 74 16 115/70 (85) 95 Room Air 06/17/17 05:55 98.1 Orders Orders Complete Blood Count With Diff (06/16/17 22:34) Comprehensive Metabolic Panel (06/16/17 22:34) Thyroid Stimulating Hormone (06/16/17 22:34) Psych Screen (06/16/17 22:34) Drug Screen, Random Urine (06/16/17 22:34) Alcohol (Ethanol) (06/16/17 22:34) Ed Discharge Order (06/17/17 10:40) Labs Laboratory Tests Test 06/16/17 22:57 06/16/17 23:20 White Blood Count 6.8 TH/MM3 Red Blood Count 4.39 MIL/MM3 Hemoglobin 14.2 GM/DL Hematocrit 41.3 % Mean Corpuscular Volume 94.1 FL Mean Corpuscular Hemoglobin 32.4 PG Mean Corpuscular Hemoglobin Concent 34.5 % Red Cell Distribution Width 14.5 % Platelet Count 199 TH/MM3 Mean Platelet Volume 7.8 FL Neutrophils (%) (Auto) 51.9 % Lymphocytes (%) (Auto) 38.0 % Monocytes (%) (Auto) 8.3 % Eosinophils (%) (Auto) 0.9 % Basophils (%) (Auto) 0.9 % Neutrophils # (Auto) 3.5 TH/MM3 Lymphocytes # (Auto) 2.6 TH/MM3 Monocytes # (Auto) 0.6 TH/MM3 Eosinophils # (Auto) 0.1 TH/MM3 Basophils # (Auto) 0.1 TH/MM3 CBC Comment DIFF FINAL Differential Comment Blood Urea Nitrogen 6 MG/DL Creatinine 0.76 MG/DL Random Glucose 72 MG/DL Total Protein 8.1 GM/DL Albumin 3.8 GM/DL Calcium Level 9.0 MG/DL Alkaline Phosphatase 59 U/L Aspartate Amino Transf (AST/SGOT) 55 U/L Alanine Aminotransferase (ALT/SGPT) 30 U/L Total Bilirubin 0.4 MG/DL Sodium Level 143 MEQ/L Potassium Level 4.0 MEQ/L Chloride Level 107 MEQ/L Carbon Dioxide Level 25.7 MEQ/L Anion Gap 10 MEQ/L Estimat Glomerular Filtration Rate 104 ML/MIN Thyroid Stimulating Hormone 3rd Gen 3.200 uIU/ML Ethyl Alcohol Level 363 MG/DL Urine Opiates Screen NEG Urine Barbiturates Screen NEG Urine Amphetamines Screen NEG Urine Benzodiazepines Screen NEG Urine Cocaine Screen NEG Urine Cannabinoids Screen NEG MDM Supervised Visit with KENZIE: No Narrative Course Patient medically cleared by psychiatry, he has study getting clear speech and wants to go straight to detox. He has no new complaints. all questions answered. Patient knows that follow up is incumbent on them and to return to the emergency room immediately if new or worsening symptoms develop. Patient given strict return precautions, vitals reviewed and are normal, agrees to further workup as an outpatient. Diagnosis Primary Impression: Medical clearance for psychiatric admission Additional Impression: Alcohol abuse with intoxication Patient Instructions: General Instructions, Abuse of Alcohol (ED) Departure Forms: Tests/Procedures Additional Instruction: return as needed, limit alcohol use, go straight to detox as discussed with the team Med/Other Pt SpecificInfo: No Change to Meds Scripts No Active Prescriptions or Reported Meds Disposition: 01 DISCHARGE HOME Condition: Stable Veronica Stoner MD Jun 17, 2017 10:43
== END 2017-06-17 10:53 | disposition home or self-care (01) ==
LOC: NEDAMB 22:23 → NEPC 06-17 10:53
DX: F10.129 Alcohol abuse with intoxication, unspecified (principal); Y90.8 Blood alcohol level of 240 mg/100 ml or more; F31.9 Bipolar disorder, unspecified; F17.200 Nicotine dependence, unspecified, uncomplicated; Z59.0 Homelessness
CPT/HCPCS: 80053; 80307; 84443; 85025; 99284

== ENCOUNTER 2017-07-16 12:49 | Emergency (ER) | payer OTHER ==
[~2017-07-16] VITALS: Ht 182.9 cm; Wt 70.0 kg
[2017-07-16 12:58] VITALS: BP 103/66; PULSE 92; RESP 17; TEMP 98.7; O2SAT 98
--- NOTE | 2017-07-16 13:26 | PD ---
HPI Chief Complaint: Medical Clearance Time Seen by Provider: 13:23 Travel History International Travel<30 days: No Contact w/Intl Traveler<30days: No Traveled to known affect area: No History of Present Illness HPI 61-year-old male presents under [place] act for evaluation of intoxication. The patient was found publicly intoxicated. He reports that he drank a large amount of vodka and beer today as he does on a regular basis. He reports that he feels excellent and would like something to eat. He is preoccupied with quoting movies during history and examination. He has no medical complaints. [facility] Past Medical History Bipolar Disorder: Yes Depression: Yes Diabetes: No Diminished Hearing: No Immunizations Current: Yes Social History Alcohol Use: Yes (daily) Tobacco Use: Yes (1/2 PPD) Substance Use: Yes Allergies-Medications (Allergen,Severity, Reaction): Coded Allergies: bee venom protein (honey bee) (Unverified Allergy, Severe, Anaphylaxis, 05/07/17) Reported Meds & Prescriptions Reported Meds & Active Scripts Active No Active Prescriptions or Reported Medications Review of Systems Except as stated in HPI: all other systems reviewed are Neg Physical Exam Narrative GENERAL: Disheveled shirtless male in no acute distress sitting upright on a hospital chair. SKIN: Warm and dry. Abrasions are noted on the knees. HEAD: Atraumatic. Normocephalic. EYES: Pupils equal and round. No scleral icterus. No injection or drainage. ENT: No nasal bleeding or discharge. Mucous membranes pink and moist. NECK: Trachea midline. No JVD. CARDIOVASCULAR: Regular rate and rhythm. No murmur appreciated. RESPIRATORY: No accessory muscle use. Clear to auscultation. Breath sounds equal bilaterally. GASTROINTESTINAL: Abdomen soft, non-tender, nondistended. Hepatic and splenic margins not palpable. MUSCULOSKELETAL: No obvious deformities. No clubbing. No cyanosis. No edema. NEUROLOGICAL: Awake and alert. No obvious cranial nerve deficits. Motor grossly within normal limits. Somewhat slurred speech. Data Data Last Documented VS Vital Signs Date Time Temp Pulse Resp B/P (MAP) Pulse Ox O2 Delivery O2 Flow Rate FiO2 07/16/17 12:58 98.7 92 17 103/66 (78) 98 Orders Orders Ed Discharge Order (07/16/17 17:45) [facility] Medical Decision Making Medical Screen Exam Complete: Yes Emergency Medical Condition: Yes Medical Record Reviewed: Yes Differential Diagnosis Alcohol intoxication, closed head injury, polysubstance abuse Narrative Course The patient appears to be intoxicated. He will remain here until he is clinically sober and then he will be discharged. The patient has been monitored here for 5 hours and he is now sober. Is stable for discharge. Diagnosis Primary Impression: Alcohol intoxication Med/Other Pt SpecificInfo: No Change to Meds Scripts No Active Prescriptions or Reported Meds Disposition: 01 DISCHARGE HOME Condition: Stable Pritesh Dela Cruz July 16, 2017 13:26
[2017-07-16 17:45] VITALS: BP 142/75; PULSE 77; RESP 17; O2SAT 100
== END 2017-07-16 17:52 | disposition home or self-care (01) ==
LOC: NEDAMB 12:49
DX: F10.129 Alcohol abuse with intoxication, unspecified (principal); F17.200 Nicotine dependence, unspecified, uncomplicated
CPT/HCPCS: 99282